=== PATIENT | female | born 1960 | race Caucasian/White ===

== ENCOUNTER 2016-07-04 10:40 | Emergency (ER) | payer MEDICARE, OTHER ==
--- NOTE | 2016-07-04 11:15 | ED ---
Extremity Problem HPI - General Chief complaint: Extremity Problem,Nontraumatic Stated complaint: PAIN IN BACK OF LEFT LEG Time Seen by Provider: 07/04/16 10:47 Source: patient, RN notes reviewed Mode of arrival: wheelchair Limitations: no limitations - History of Present Illness Initial comments: Patient is a 56-year-old female presents to the emergency room for evaluation of left leg pain. Patient states she has been having pain in her left calf that radiates up to posterior thigh. Patient states pain started about a week ago. Patient does state that she fell about 2 months ago onto her buttocks. Patient states that she did have tailbone pain for about a week but that has subsided. Patient denies weakness. Patient denies urinary or fecal incontinence. Patient denies tingling going down extremities Patient denies history of DVTs. Patient denies taking blood thinners. Patient denies shortness of breath or chest pain. Patient does state she has a history of neuropathy. Patient denies history diabetes. Patient denies fevers or chills. Patient denies nausea or vomiting. Patient states the pain improves while leaning forward and walking. - Related Data Home Medications Medication Instructions Recorded Confirmed Aspirin EC [Ecotrin] 325 mg PO DAILY 07/26/13 07/04/16 Citalopram Hydrobromide 40 mg PO HS 07/26/13 07/04/16 [Citalopram HBr] Gabapentin [Neurontin] 600 mg PO TID 07/26/13 07/04/16 Methylphenidate HCl [Ritalin] 20 mg PO BID 07/26/13 07/04/16 risperiDONE 4 mg PO HS 07/26/13 07/04/16 traZODone HCL [traZODone] 150 mg PO HS 07/26/13 07/04/16 Atorvastatin [Lipitor] 40 mg PO HS 07/04/16 07/04/16 Cholecalciferol [Vitamin D3] 1,000 unit PO DAILY 07/04/16 07/04/16 Diclofenac Sodium [Voltaren Gel] 2 gram TOPICAL QID 07/04/16 07/04/16 Lisinopril [Zestril] 10 mg PO DAILY 07/04/16 07/04/16 Multivitamins, Thera [Multivitamin 1 tab PO DAILY@1200 07/04/16 07/04/16 (formulary)] Previous Rx's Medication Instructions Recorded Thiamine [Vitamin B-1] 100 mg PO DAILY@1200 #30 tablet 07/28/13 HYDROcodone/APAP 5-325MG [[place] 1 tab PO Q6HR PRN #12 tab 07/04/16 5-325] Orphenadrine [Norflex] 100 mg PO Q12H PRN #12 tablet.er 07/04/16 methylPREDNISolone Dose Pack 4 mg PO DIRECTED #21 package 07/04/16 [Medrol Dose Pack] Allergies Allergy/AdvReac Type Severity Reaction Status Date / Time iodine Allergy Unknown Verified 07/04/16 12:12 Penicillins Allergy Unknown Verified 07/04/16 12:12 Review of Systems ROS Statement: Those systems with pertinent positive or pertinent negative responses have been documented in the HPI. ROS Other: All systems not noted in ROS Statement are negative. Past Medical History Past Medical History: COPD, CVA/TIA, Hyperlipidemia, Hypertension, Liver Disease , Memory Impairment, Osteoarthritis (OA), Seizure Disorder Additional Past Medical History / Comment(s): cerebral aneurysm, bipolar disorder maintained on multiple psychotropic medications History of Any Multi-Drug Resistant Organisms: None Reported Past Surgical History: Cholecystectomy, Tonsillectomy Additional Past Surgical History / Comment(s): , brain surgery x2 for aneurysm, catherterization to brain Past Anesthesia/Blood Transfusion Reactions: No Reported Reaction Past Psychological History: Anxiety, Bipolar, Schizophrenia Smoking Status: Current every day smoker Past Alcohol Use History: Occasional Additional Past Alcohol Use History / Comment(s): The patient drinks half a pint of hard liquor every day Past Drug Use History: Marijuana - Past Family History Father Family Medical History: COPD, Coronary Artery Disease (CAD), Diabetes Mellitus Mother Family Medical History: Cancer General Exam - General Exam Comments Initial Comments: Sitting in exam room, no acute distress. Limitations: no limitations General appearance: alert, in no apparent distress Head exam: Present: atraumatic, normocephalic, normal inspection Eye exam: Present: normal appearance ENT exam: Present: normal exam Neck exam: Present: normal inspection Respiratory exam: Present: normal lung sounds bilaterally. Absent: respiratory distress Cardiovascular Exam: Present: regular rate, normal rhythm, normal heart sounds Left Lower Leg exam: Present: normal inspection, full ROM, tenderness (Tenderness on palpation of calf area and posterior upper thigh) Ankle exam: Present: normal inspection, full ROM. Absent: tenderness Foot/Toe exam: Present: normal inspection, full ROM. Absent: tenderness Neurovascular tendon exam: Present: no vascular compromise. Absent: pulse deficit (2+ dorsal pedal and posterior tibial pulses), abnormal cap refill ( Capillary refill less than 2 seconds) Back exam: Present: normal inspection, full ROM. Absent: paraspinal tenderness , vertebral tenderness Neurological exam: Present: alert, oriented X3, CN II-XII intact Psychiatric exam: Present: normal affect, normal mood Skin exam: Present: warm, dry, intact, normal color. Absent: rash Course Vital Signs 07/04/16 07/04/16 10:42 13:45 Temperature 96.8 F L 97.6 F Pulse Rate 116 H 95 Respiratory 20 18 Rate Blood Pressure 168/89 163/97 O2 Sat by Pulse 98 100 Oximetry Medical Decision Making - Medical Decision Making Patient is a 56-year-old female since emergency room for evaluation of left leg pain. Venous Doppler of left extremity shows no signs of DVTs. Patient does mention that she fell on her tailbone about 2 weeks ago. Patient's pain could be radicular pain. X-ray of sacrum/coccyx and lumbosacral spine show no acute findings. Patient does state that pain improves while leaning forward. Place patient on prednisone, Norflex and [place]eca for radicular pain. Advised patient to follow-up with her primary care provider on Wednesday for further evaluation. Advised patient to return for worsening symptoms. Patient states she understands everything that was discussed with her. Return parameters discussed. Case discussed with Dr. Salcedo. Disposition Clinical Impression: Left lumbar radiculopathy Disposition: HOME SELF-CARE Condition: Good Instructions: Lumbar Radiculopathy (ED) Additional Instructions: Take medications as directed. Please follow up with primary care provider in 1- 2 days for reevaluation. If any new symptom arises or symptoms worsen, return to ER as soon as possible. Prescriptions: HYDROcodone/APAP 5-325MG [Seneca 5-325] 1 tab PO Q6HR PRN #12 tab PRN Reason: Pain Orphenadrine [Norflex] 100 mg PO Q12H PRN #12 tablet.er PRN Reason: Pain methylPREDNISolone Dose Pack [Medrol Dose Pack] 4 mg PO DIRECTED #21 package Referrals: Kris Ch MD [Primary Care Provider] - 1-2 days Time of Disposition: 13:34
[2016-07-04] MEDS ORDERED: HYDROcodone/APAP 5-325MG 1 EACH TAB PO STA (11:48)
--- NOTE | 2016-07-04 12:25 | US ---
EXAMINATION TYPE: US venous doppler duplex LE LT DATE OF EXAM: 07/04/2016 11:13 AM COMPARISON: NONE CLINICAL HISTORY: Pain. Lateral thigh pain that extends to knee, no swelling, no h/o dvt SIDE PERFORMED: Left TECHNIQUE: The lower extremity deep venous system is examined utilizing real time linear array sonog devi with graded compression, doppler sonography and color-flow sonography. VESSELS IMAGED: External Iliac Vein (EIV) Common Femoral Vein Deep Femoral Vein Greater Saphenous Vein * Femoral Vein Popliteal Vein Small Saphenous Vein * Proximal Calf Veins (* superficial vessels) Left Leg: Appears negative for DVT Grayscale, color doppler, spectral doppler imaging performed of the deep veins of the lower extremiti es. There is normal flow, compressibility, vascular waveforms bilaterally. Targeted ultrasound last several images at level of palpable in the lateral howard just above ankle show no worrisome solid or cystic mass or fluid collection on images saved. IMPRESSION: No ultrasound evidence for acute DVT in the left lower extremity.
--- NOTE | 2016-07-04 13:05 | XR ---
EXAMINATION TYPE: XR sacrum coccyx DATE OF EXAM: 07/04/2016 12:58 PM COMPARISON: NONE HISTORY: Fall injury a week ago with pain. TECHNIQUE: 2 views of sacrum and coccyx are obtained. FINDINGS: No acute displaced fracture in sacrum or coccyx is seen. Sacral alar are maintained bilater ally. Sacroiliac joints are felt preserved. Demineralization is present which is noted low radiograph ic sensitivity. Some vascular calcification in the overlying soft tissue is noted. IMPRESSION: No acute displaced sacral or coccygeal fracture is identified.
--- NOTE | 2016-07-04 13:06 | XR ---
EXAMINATION TYPE: XR lumbosacral spine min 4V DATE OF EXAM: 07/04/2016 12:58 PM CLINICAL HISTORY: Low back pain after fall injury. TECHNIQUE: Frontal, lateral, and oblique images of the lumbar spine are obtained. COMPARISON: None FINDINGS: There are 5 lumbar type vertebral bodies identified with partially sacralized right L5 seg ment. Mineralized. The lumbar spine shows grade 1 anterolisthesis L4 on L5 without evidence of acute fracture or dislocation. Vertebral body heights are within normal limits. There is moderate multileve l disc space narrowing from L3-L4 through L5-S1 levels. Mild to moderate anterior spurring L4-L5 leve l is seen. The oblique images appear within normal limits. Cholecystectomy clips are seen. Overlying oblique skin or subcutaneous teresita are noted. Vascular calcification of overlying abdominal aorta i s noted. IMPRESSION: No acute fracture or dislocation is seen in the lumbar spine.
[2016-07-04 13:46] VITALS: BP 163/97; PULSE 95; RESP 18; TEMP 97.6
== END 2016-07-04 13:45 | disposition home or self-care (01) ==
LOC: EC 10:40
DX: M54.16 Radiculopathy, lumbar region (principal); J44.9 Chronic obstructive pulmonary disease, unspecified; E78.5 Hyperlipidemia, unspecified; I10 Essential (primary) hypertension; M19.90 Unspecified osteoarthritis, unspecified site; G40.909 Epilepsy, unspecified, not intractable, without status epilepticus; F20.9 Schizophrenia, unspecified; F31.9 Bipolar disorder, unspecified; F41.9 Anxiety disorder, unspecified; F17.200 Nicotine dependence, unspecified, uncomplicated; Z86.73 Personal history of transient ischemic attack (TIA), and cerebral infarction without residual deficits; Z79.82 Long term (current) use of aspirin; Z79.899 Other long term (current) drug therapy; Z88.0 Allergy status to penicillin; Z88.8 Allergy status to other drugs, medicaments and biological substances
CPT/HCPCS: 72110; 72220; 99284

== ENCOUNTER → 2016-08-12 | Outpatient (CLI) | payer MEDICARE ==
--- NOTE | 2016-08-15 10:17 | MR ---
MRI left thigh HISTORY: Left thigh pain Multiplanar multisequence imaging through the left thigh No comparisons Abnormal increased signal seen on T2-weighted sequences within the subcutaneous fat of the thigh medi ally which is incompletely evaluated on the current exam, imaging performed more proximally. There is no sizable hip joint effusion. Uterus is normal for age, small nabothian cysts suspected. Bone marro w signal is maintained. No evident trochanteric bursitis. The acetabular labrum shows no definitive t ear on this noncontrast exam. Urinary bladder is normal. There are degenerative disc changes noted at the lower lumbar spine. No free fluid within the pelvis. No evident adenopathy. IMPRESSION: Degenerative disc disease lumbar spine, lumbar MRI may be of benefit. Abnormal signal in the medial thigh incompletely evaluated could be indicative of underlying edema, correlate for possi ble varicosities, thrombophlebitis or cellulitis.
== END | disposition home or self-care (01) ==
LOC: RADMRIMAIN 16:58
PROVIDERS: ATTEND Internal Medicine
DX: M79.652 Pain in left thigh (principal); R93.7 Abnormal findings on diagnostic imaging of other parts of musculoskeletal system

== ENCOUNTER → 2016-08-29 | Outpatient (CLI) | payer MEDICARE ==
--- NOTE | 2016-08-29 13:23 | MR ---
MR lumbar spine wo con Low back pain, left leg pain Multiplanar, multiecho imaging of the lumbar spine was obtained without contrast on a 3 Krystle magnet. REFERENCE:None. FINDINGS: There is a 12 mm nodule just superior to the kidney on the right. This is high in signal o n T1-weighted imaging and may relate to the right adrenal gland. It may represent a myolipoma. Parasp inal soft tissues are otherwise normal. There is a minimal anterolisthesis of L3 on L4. Vertebral body height and alignment otherwise maintai jolie. There is no spondylolysis. Cord signal is maintained. The conus ends normally at the level of the mid body of L1. At T12-L1, no definite abnormality is seen. At L1-2, the intervertebral foramina are well maintained. There is no significant compressive discopa thy. There is minor capsulitis within the facets. At L2-3, there is a bilobed disc displacement. Intervertebral foramina are well maintained. There is minimal hypertrophic change in the facets. At L3-4, there is disc space loss. Intervertebral foramina are well maintained. There is a degenerati ve grade 1 spondylolisthesis of L3 on L4. There is a small pseudodisc. There is marked hypertrophic c hanges within the facets. There is moderate to severe central canal stenosis. At L4-5, there is disc space loss. Intervertebral foramina are reasonably well-maintained. There is a diffuse disc displacement. This hypertrophic changes in the facets. There is mild to moderate centra l canal stenosis. At L5-S1, the intervertebral foramina are reasonably well-maintained. There is a tiny central disc pr otrusion. This is not associated with definite neural compression. There is hypertrophic changes in t he facets.. IMPRESSION: 1. DIFFUSE DEGENERATIVE DISC DISEASE AND FACET ARTHROPATHY. 2. GRADE 1 SPONDYLOLISTHESIS OF L3 ON L4 WHICH IS DEGENERATIVE IN NATURE. 4. VARYING DEGREES OF CENTRAL CANAL COMPROMISE. THIS IS MOST MARKED AT L3-4. 5. 12 MM FAT-CONTAINING NODULE LIKELY RELATING TO THE RIGHT ADRENAL GLAND. THIS COULD BE FURTHER ASSE SSED WITH CT.
== END | disposition home or self-care (01) ==
LOC: RADMRIMAIN 12:09
PROVIDERS: ATTEND Internal Medicine
DX: M43.16 Spondylolisthesis, lumbar region (principal); M51.36 Other intervertebral disc degeneration, lumbar region; M46.96 Unspecified inflammatory spondylopathy, lumbar region
CPT/HCPCS: 72148

== ENCOUNTER 2016-11-03 13:12 | Emergency (ER) | payer MEDICARE ==
[2016-11-03] MEDS ORDERED: SODIUM CHLORIDE 0.9% 1,000 ML IV STA ×2 (13:46→14:26)
[2016-11-03 14:15] LABS: Basophils # (A) 0.1 k/uL (0-0.2); Basophils % (A) 1 %; CH 34.7; CHCM 33.6; Eosinophils # (A) 0.1 k/uL (0-0.7); Eosinophils % (A) 1 %; HCT 43.8 % (34.0-46.0); HDW 2.35; HGB 14.9 gm/dL (11.4-16.0); Luc # (Auto) 0.09; Luc % (Auto) 1; Lymphocytes # (A) 1.1 k/uL (1.0-4.8); Lymphocytes % (A) 12 %; MCH 35.1 pg (25.0-35.0); MCV 103.5 fL (80.0-100.0); Macrocytosis Moderate; Mean Platelet Volume 6.9; Monocytes # (A) 0.4 k/uL (0-1.0); Monocytes % (A) 4 %; Neutrophils # (A) 7.9 k/uL (1.3-7.7); Neutrophils % (A) 82 %; RBC 4.23 m/uL (3.80-5.40); RDW 15.4 % (11.5-15.5); WBC 9.6 k/uL (3.8-10.6); WBC (Perox) 9.66
[2016-11-03 14:17] LABS: INR 1.1 (<1.2); Partial Thromboplastin Time 26.1 sec (22.0-30.0); Prothrombin Time 11.2 sec (9.0-12.0)
[2016-11-03 14:26] LABS: ALT 46 U/L (9-52); AST 55 U/L (14-36); Alkaline Phosphatase 47 U/L (38-126); Anion Gap 16 mmol/L; Blood Urea Nitrogen 8 mg/dL (7-17); Calcium 8.6 mg/dL (8.4-10.2); Carbon Dioxide 21 mmol/L (22-30); Chloride 100 mmol/L (98-107); Glucose 129 mg/dL (74-99); Non-African American GFR(MDRD) >60 (>60 ml/min/1.73 sqM); Sodium 137 mmol/L (137-145); Total Protein 6.8 g/dL (6.3-8.2)
[2016-11-03] MEDS ORDERED: LORazepam 2 MG/ML SYRINGE IV STA ×3 (14:27→15:55)
[2016-11-03 14:33] LABS: Creatine Kinase 411 U/L (30-135)
--- NOTE | 2016-11-03 14:35 | ED ---
GI Bleed HPI - General Chief complaint: GI Bleed Stated complaint: GI Bleed Time Seen by Provider: 11/03/16 14:16 Source: patient, family Mode of arrival: ambulatory Limitations: no limitations - History of Present Illness Initial comments: This 56-year-old white female presents with family with a complaint of some rectal bleeding. She apparently had one episode this morning of bright red blood per rectum which was purportedly a moderate amount. She also has been drinking heavily. She drinks approximately one and a half pints per day. She has been drinking today and appears intoxicated. She apparently fell 2 days ago and hit her left periorbital region. She denies any other injuries. She denies passing out but this apparently was an unwitnessed event. She denies any previous history of GI bleeding. She denies any history of peptic ulcer disease. The family relates that she is having a difficult time ambulating but thinks this is due to her alcohol intoxication. No other injuries, complaints, or modifying factors. She apparently has not been taking her medicine due to drinking alcohol heavily. She relates that she has been drinking a lot of red Clif-Aid recently. - Related Data Home Medications Medication Instructions Recorded Confirmed Aspirin EC [Ecotrin] 325 mg PO DAILY 07/26/13 11/03/16 Citalopram Hydrobromide 40 mg PO HS 07/26/13 11/03/16 [Citalopram HBr] Gabapentin [Neurontin] 600 mg PO TID 07/26/13 11/03/16 Methylphenidate HCl [Ritalin] 20 mg PO BID 07/26/13 11/03/16 risperiDONE 4 mg PO HS 07/26/13 11/03/16 traZODone HCL [traZODone] 150 mg PO HS 07/26/13 11/03/16 Atorvastatin [Lipitor] 40 mg PO HS 07/04/16 11/03/16 Cholecalciferol [Vitamin D3] 1,000 unit PO DAILY 07/04/16 11/03/16 Lisinopril [Zestril] 10 mg PO DAILY 07/04/16 11/03/16 Multivitamins, Thera [Multivitamin 1 tab PO DAILY 07/04/16 11/03/16 (formulary)] Albuterol Inhaler [Ventolin Hfa 1 - 2 puff INHALATION RT-Q6H PRN 11/03/16 Inhaler] Baclofen [Lioresal] 10 mg PO TID PRN 11/03/16 11/03/16 Fluticasone/Salmeterol [Advair 1 inhalation PO RT-BID 11/03/16 11/03/16 500-50 Diskus] HYDROcodone/APAP 10-325MG [[place] 1 tab PO Q6H PRN 11/03/16 11/03/16 10-325] Meloxicam [Mobic] 15 mg PO DAILY 11/03/16 11/03/16 Thiamine [Vitamin B-1] 100 mg PO DAILY 11/03/16 11/03/16 Allergies Allergy/AdvReac Type Severity Reaction Status Date / Time iodine Allergy Unknown Verified 11/03/16 14:41 Penicillins Allergy Unknown Verified 11/03/16 14:41 Review of Systems ROS Statement: Those systems with pertinent positive or pertinent negative responses have been documented in the HPI. ROS Other: All systems not noted in ROS Statement are negative. Past Medical History Past Medical History: COPD, CVA/TIA, Hyperlipidemia, Hypertension, Liver Disease , Memory Impairment, Osteoarthritis (OA), Seizure Disorder Additional Past Medical History / Comment(s): cerebral aneurysm, bipolar disorder maintained on multiple psychotropic medications History of Any Multi-Drug Resistant Organisms: None Reported Past Surgical History: Cholecystectomy, Tonsillectomy Additional Past Surgical History / Comment(s): , brain surgery x2 for aneurysm, catherterization to brain Past Anesthesia/Blood Transfusion Reactions: No Reported Reaction Past Psychological History: Anxiety, Bipolar, Schizophrenia Smoking Status: Current every day smoker Past Alcohol Use History: Daily Past Drug Use History: None Reported - Past Family History Father Family Medical History: COPD, Coronary Artery Disease (CAD), Diabetes Mellitus Mother Family Medical History: Cancer General Exam - General Exam Comments Initial Comments: GENERAL: The patient is well nourished and well hydrated. VITAL SIGNS: Heart rate, blood pressure, respiratory rate reviewed as recorded in nurse's notes. EYES: Pupils are round and reactive. Extraocular movements are intact. There is mild conjunctival erythema bilaterally. ENT: There is some left periorbital ecchymosis. There is no significant swelling noted. There is no tenderness upon palpation. Airway is patent. Throat is clear. NECK: Nontender. No swelling or evidence of injury. No subcutaneous emphysema. Trachea is midline. No thyroid mass. HEART: Regular rate and rhythm. Good peripheral pulses. LUNGS/CHEST: Breath sounds clear and equal bilaterally. No rales, rhonchi, or wheezes. No ecchymosis, subcutaneous emphysema, or tenderness. ABDOMEN: Abdomen soft without tenderness. No palpable masses or organomegaly. No peritoneal signs. No abdominal wall swelling or ecchymosis. EXTREMITIES: No extremity tenderness. Normal muscle tone and function. No thoracolumbar tenderness. NEUROLOGIC: Sensation is grossly intact. Cranial nerve exam reveals face is symmetrical, tongue is midline, speech is clear. Patient appears intoxicated with a strong odor of alcohol noted. SKIN: There is ecchymosis noted to the left periorbital region. No induration or masses noted. PSYCHIATRIC: Alert and oriented. Patient appears intoxicated and quite agitated. Rectal exam: There is some mild nonbleeding hemorrhoids noted. Upon digital rectal examination a reddish substance is noted on the end of the glove. This does not appear to be blood and Hemoccult is negative. Limitations: no limitations Course Vital Signs 11/03/16 11/03/16 11/03/16 13:19 14:39 16:33 Temperature 98.4 F 98.1 F Pulse Rate 116 H 94 85 Respiratory 20 18 16 Rate Blood Pressure 145/94 130/71 O2 Sat by Pulse 95 95 Oximetry 11/03/16 20:09 Temperature 98.4 F Pulse Rate 104 H Respiratory 18 Rate Blood Pressure 173/89 O2 Sat by Pulse 95 Oximetry Medical Decision Making - Medical Decision Making The patient was seen and examined. All diagnostics were reviewed. An IV is started and she is hydrated. She receives Ativan 1 mg IV due to the agitation. She still remains agitated and later receives another milligram of Ativan. She pulled out her IV and was stripping down her close in the ER. She had a computed tomography scan of the brain which shows previous aneurysm clipping but no acute process. Computed tomography scan of the orbits does show some right maxillary sinusitis. The patient's alcohol level was elevated. Her potassium is slightly low. The Hemoccult is negative. It is felt as though the suspected blood in the stool is likely due to her drinking red Clif-Aid. Her hemoglobin is quite stable at 14.9. At this time, it is felt that her main problem is that of alcohol abuse and intoxication. She will be watched in the ER unil sober. She remains quite combative and is trying to get off her car continuously and walk away. She is quite agitated as well. She receives some Geodon intramuscularly but this does not seem to help. 4 point restraints were necessary and utilized. She was evaluated approximately one hour after they restraints are placed and she is still quite combative. Repeat breathalyzer test was eventually done and this shows a value of 0.059. She is feeling much better at this time and does not have any complaints. The restraints were removed and she is able to ambulate without any difficulty. She is alert and oriented and much more pleasant on recheck. There are no signs of any degree of alcohol withdrawal noted. It is felt as though she is stable for discharge. She is counseled extensively regarding alcohol abuse and need for abstinence. The case is discussed with her son prior to discharge and he states that he will try to get her set up with alcohol rehabilitation. She is given information in this regard as well. - Lab Data Result diagrams: 11/03/16 13:35 11/03/16 13:35 Lab Results 11/03/16 11/03/16 11/03/16 Range/Units 13:35 13:35 13:35 WBC 9.6 (3.8-10.6) k/uL RBC 4.23 (3.80-5.40) m/uL Hgb 14.9 (11.4-16.0) gm/dL Hct 43.8 (34.0-46.0) % MCV 103.5 H (80.0-100.0) fL MCH 35.1 H (25.0-35.0) pg MCHC 34.0 (31.0-37.0) g/dL RDW 15.4 (11.5-15.5) % Plt Count 149 L (150-450) k/uL Neutrophils % 82 % Lymphocytes % 12 % Monocytes % 4 % Eosinophils % 1 % Basophils % 1 % Neutrophils # 7.9 H (1.3-7.7) k/uL Lymphocytes # 1.1 (1.0-4.8) k/uL Monocytes # 0.4 (0-1.0) k/uL Eosinophils # 0.1 (0-0.7) k/uL Basophils # 0.1 (0-0.2) k/uL Macrocytosis Moderate PT (9.0-12.0) sec INR (<1.2) APTT (22.0-30.0) sec Sodium 137 (137-145) mmol/L Potassium 3.0 L* (3.5-5.1) mmol/L Chloride 100 (98-107) mmol/L Carbon Dioxide 21 L (22-30) mmol/L Anion Gap 16 mmol/L BUN 8 (7-17) mg/dL Creatinine 0.92 (0.52-1.04) mg/dL Est GFR (MDRD) Af Amer >60 (>60 ml/min/1.73 sqM) Est GFR (MDRD) Non-Af >60 (>60 ml/min/1.73 sqM) Glucose 129 H (74-99) mg/dL Calcium 8.6 (8.4-10.2) mg/dL Total Bilirubin 1.0 (0.2-1.3) mg/dL AST 55 H (14-36) U/L ALT 46 (9-52) U/L Alkaline Phosphatase 47 (38-126) U/L Total Creatine Kinase 411 H (30-135) U/L CK-MB (CK-2) 5.6 H* (0.0-2.4) ng/mL CK-MB (CK-2) Rel Index 1.4 Troponin I <0.012 (0.000-0.034) ng/mL Total Protein 6.8 (6.3-8.2) g/dL Albumin 3.6 (3.5-5.0) g/dL Stool Occult Blood (Negative) Serum Alcohol 262 mg/dL Blood Type Blood Type Recheck Antibody Screen Spec Expiration Date 11/03/16 11/03/16 11/03/16 Range/Units 13:35 13:35 15:00 WBC (3.8-10.6) k/uL RBC (3.80-5.40) m/uL Hgb (11.4-16.0) gm/dL Hct (34.0-46.0) % MCV (80.0-100.0) fL MCH (25.0-35.0) pg MCHC (31.0-37.0) g/dL RDW (11.5-15.5) % Plt Count (150-450) k/uL Neutrophils % % Lymphocytes % % Monocytes % % Eosinophils % % Basophils % % Neutrophils # (1.3-7.7) k/uL Lymphocytes # (1.0-4.8) k/uL Monocytes # (0-1.0) k/uL Eosinophils # (0-0.7) k/uL Basophils # (0-0.2) k/uL Macrocytosis PT 11.2 (9.0-12.0) sec INR 1.1 (<1.2) APTT 26.1 (22.0-30.0) sec Sodium (137-145) mmol/L Potassium (3.5-5.1) mmol/L Chloride (98-107) mmol/L Carbon Dioxide (22-30) mmol/L Anion Gap mmol/L BUN (7-17) mg/dL Creatinine (0.52-1.04) mg/dL Est GFR (MDRD) Af Amer (>60 ml/min/1.73 sqM) Est GFR (MDRD) Non-Af (>60 ml/min/1.73 sqM) Glucose (74-99) mg/dL Calcium (8.4-10.2) mg/dL Total Bilirubin (0.2-1.3) mg/dL AST (14-36) U/L ALT (9-52) U/L Alkaline Phosphatase (38-126) U/L Total Creatine Kinase (30-135) U/L CK-MB (CK-2) (0.0-2.4) ng/mL CK-MB (CK-2) Rel Index Troponin I (0.000-0.034) ng/mL Total Protein (6.3-8.2) g/dL Albumin (3.5-5.0) g/dL Stool Occult Blood Negative (Negative) Serum Alcohol mg/dL Blood Type AB Negative Blood Type Recheck AB Neg Antibody Screen NEGATIVE Spec Expiration Date 11/06/20162334 Disposition Clinical Impression: Altered mental status, Alcohol intoxication, Sinus tachycardia, Periorbital ecchymosis of left eye, Agitation, Hypokalemia, Alcohol abuse, Head injury Disposition: HOME SELF-CARE Condition: Good Instructions: Abuse of Alcohol (ED), Alcohol Intoxication (ED), Head Injury (ED ) Referrals: Ellen Cano MD [Primary Care Provider] - 1-2 days Time of Disposition: 21:24
[2016-11-03 14:37] LABS: Alcohol 262 mg/dL
[2016-11-03 14:46] LABS: Troponin I <0.012 ng/mL (0.000-0.034)
[2016-11-03 14:56] LABS: Creatine Kinase MB 5.6 ng/mL (0.0-2.4)
[2016-11-03] MEDS ORDERED: NICOTINE 21MG/24HR PATCH TRANSDERM STA (15:04)
--- NOTE | 2016-11-03 15:42 | CT ---
EXAMINATION TYPE: CT brain wo con DATE OF EXAM: 11/03/2016 COMPARISON: Previous study dated 01/18/2015. HISTORY: Patient poor historian. Patient has right side periorbital contusion. CT DLP: 863.4 mGycm Automated exposure control for dose reduction was used. FINDINGS: There has been a previous aneurysm clipping near the [place]. This is causing significant st reak artifact. There are mild atrophic changes. There is some periventricular white matter lucency consistent with c hronic ischemic change. There is no focal lesion, mass effect or midline shift. I do not see evidence of intracranial blood. The orbits appear normal. There is mucoperiosteal thickening involving the ethmoid air cells. There is fluid in the left mastoi d air cells. There is mucosal thickening involving the right maxillary sinus. The zygomatic arches are intact. The pterygoid plates are intact. The coates of the orbits are intact. IMPRESSION: 1. EVIDENCE OF PREVIOUS ANEURYSM CLIPPING. 2. NO ACUTE INTRACRANIAL ABNORMALITY. 3. MILD ATROPHIC CHANGE. 4. RIGHT MAXILLARY AND ETHMOIDAL SINUS MUCOSAL DISEASE. 5. LEFT-SIDED MASTOIDITIS.
[2016-11-03] MEDS ORDERED: POTASSIUM CHLORIDE ER 20 MEQ TAB.ER PO STA (15:53)
--- NOTE | 2016-11-03 15:55 | CT ---
EXAMINATION TYPE: CT orbits wo con DATE OF EXAM: 11/03/2016 COMPARISON: NONE HISTORY: Patient poor historian. Patient has right side periorbital contusion. CT DLP: 307.3 mGycm Automated exposure control for dose reduction was used. FINDINGS: Chronic right maxillary mucoperiosteal thickening is seen. Scant left maxillary mucosal thickening is noted as well as mild ethmoid, sphenoid and frontal mucosal thickening. The ostiomeatal complexes ar e obstructed bilaterally. No evidence of nasal turbinate hypertrophy. Frontal recesses are patent. No contra bullosa or Zainab cells are seen. Small rightward nasal spur is noted. Maxillary spine and na gerda septum are intact. Atherosclerosis of the intracranial vasculature is seen as well as aneurysmal clip crating extensive spray artifact. Visualized portions of the brain were discussed in the CT brain dictation the same da y. Orbits and extra ocular muscles are symmetric. IMPRESSION: ACUTE ON CHRONIC PANSINUSITIS WITH CHRONIC RIGHT MAXILLARY OSSEOUS CHANGES. BILATERAL OSTIOMEATAL OCC LUSION BY MUCOSAL THICKENING.
[2016-11-03] MEDS ORDERED: ZIPRASIDONE 20 MG VIAL IM STA ×2 (17:38→17:39)
[2016-11-03 20:38] VITALS: RESP 18
[2016-11-03 21:28] VITALS: BP 162/72; PULSE 80; TEMP 98.2
== END 2016-11-03 21:30 | disposition home or self-care (01) ==
LOC: EC 13:12
DX: S05.10XA Contusion of eyeball and orbital tissues, unspecified eye, initial encounter (principal); R41.82 Altered mental status, unspecified; F10.120 Alcohol abuse with intoxication, uncomplicated; R00.0 Tachycardia, unspecified; E87.6 Hypokalemia; I67.1 Cerebral aneurysm, nonruptured; J44.9 Chronic obstructive pulmonary disease, unspecified; E78.5 Hyperlipidemia, unspecified; I10 Essential (primary) hypertension; M19.90 Unspecified osteoarthritis, unspecified site; F41.9 Anxiety disorder, unspecified; F31.9 Bipolar disorder, unspecified; F20.9 Schizophrenia, unspecified; F17.200 Nicotine dependence, unspecified, uncomplicated; Z79.1 Long term (current) use of non-steroidal anti-inflammatories (NSAID); Z79.52 Long term (current) use of systemic steroids; Z79.899 Other long term (current) drug therapy; Z79.82 Long term (current) use of aspirin; Z86.73 Personal history of transient ischemic attack (TIA), and cerebral infarction without residual deficits; Z98.890 Other specified postprocedural states; Z78.1 Physical restraint status
CPT/HCPCS: 96361 ×6; 96372 ×2; 96360 ×3; 96374 ×3; 96376 ×2; 99284 ×2; 36415; 86900; 86901; 80053; 82550; 82553; 84484; 85025; 85610; 85730; 86850; 82272; 80320; 70450; 70480; S4990; J2060; J3486

== ENCOUNTER → 2016-12-14 | Outpatient (CLI) | payer MEDICARE ==
--- NOTE | 2016-12-14 14:15 | XR ---
EXAMINATION TYPE: 5 views lumbar spine. 2 views left hip. DATE OF EXAM: 12/14/2016 COMPARISON: NONE HISTORY: 56-year-old female multiple recent falls, left hip and low back pain. FINDINGS: Lumbar spine: There is a transitional lumbosacral segment with a right L5 hemisacralization. Hypertrophic facet art hropathy throughout especially in the mid to lower lumbar spine. There is grade 1 anterolisthesis at L4-L5. The pedicles appear short suggesting possible underlying congenital spinal canal stenosis. Adore tebral body heights are preserved. Mild to moderate degenerative disc disease in the lower lumbar spi ne. No pars interarticularis defects seen. Left hip: Mild marginal spurring at the left hip. Some degenerative labral ossification or congenital os acetab tobi is noted along the superior acetabular margin. No acute fracture, subluxation, or dislocation. IMPRESSION: 1. Lumbar spine: Hypertrophic facet arthropathy throughout with grade 1 anterolisthesis at L4-L5. Mil d to moderate degenerative disc disease lower lumbar spine. Possible underlying congenital spinal can al narrowing lower lumbar spine. No vertebral compression collapse. 2. Left hip: Very mild degenerative changes. No acute osseous abnormality seen.
== END | disposition home or self-care (01) ==
LOC: RADXRMAIN 12:24
PROVIDERS: ATTEND Internal Medicine
DX: M43.16 Spondylolisthesis, lumbar region (principal); M51.36 Other intervertebral disc degeneration, lumbar region; M25.552 Pain in left hip; M46.86 Other specified inflammatory spondylopathies, lumbar region
CPT/HCPCS: 72110; 73502

== ENCOUNTER → 2017-01-26 | Outpatient (CLI) | payer MEDICARE ==
--- NOTE | 2017-01-26 09:11 | US ---
EXAMINATION TYPE: US liver DATE OF EXAM: 01/26/2017 COMPARISON: None CLINICAL HISTORY: 57-year-old female R94.5 ABN LIVER FUNCTIONS. On multiple medications for HTN, bipo lar, ADHD; smoker TECHNIQUE: Multiple sonographic images of the right upper quadrant are obtained. FINDINGS: Liver Length: 15.4 cm Gallbladder: surgically removed CBD: 0.9 cm Right Kidney: 10.5 x 5.2 x 4.6 cm Pancreas: Suboptimal visualization of the pancreatic head and tail due to shadowing from bowel gas. Visualized body shows no gross abnormality. Liver: Mildly hyperechoic. No focal lesion seen. Gallbladder: surgically absent CBD: Dilated but within acceptable limits postcholecystectomy. Right Kidney: No hydronephrosis IMPRESSION: 1. The liver is mildly hyperechoic suggesting fatty infiltration. Correlate with LFTs, lipid profile, and patient risk factors. 2. Bile duct dilated at 9 mm. This is within an acceptable range status post cholecystectomy.
== END | disposition home or self-care (01) ==
LOC: RADUSWWP 08:14
PROVIDERS: ATTEND Internal Medicine
DX: R93.2 Abnormal findings on diagnostic imaging of liver and biliary tract (principal); Z90.49 Acquired absence of other specified parts of digestive tract
CPT/HCPCS: 76705

== ENCOUNTER → 2017-09-01 | Outpatient (CLI) | payer MEDICARE, OTHER ==
--- NOTE | 2017-09-01 12:16 | MR ---
Sary Weller EXAMINATION TYPE: MRI brain without contrast DATE OF EXAM: 09/01/2017 COMPARISON: CT 11/03/2016 and MRA 01/18/2015 HISTORY: 57-year-old female follow-up nonruptured cerebral aneurysm TECHNIQUE: Multiplanar, multisequence images of the brain and brainstem were acquired without IV con trast. Diffusion weighted imaging is performed. FINDINGS: There is focal susceptibility artifact in the region of the A1 segment right anterior cerebral artery from known coil mass. No evidence for acute infarction, hemorrhage, mass, mass effect, midline shift, herniation, effacemen t of basal cisterns, or extra-axial fluid collection. There is moderate generalized supratentorial volume loss is secondary mild prominence to the ventricu lar system. The left vertebral artery is dominant. There is visualization of the right internal carotid artery fl ow void on the present exam. The patient's right A1 segment coil mass measures 10 mm craniocaudal by 6 mm wide by 7 mm AP. The remaining intracranial flow voids are intact. T2/FLAIR weighted sequences show mild scattered subcortical white matter changes, nonspecific, most l ikely relating to trace border of chronic small vessel ischemic disease. Midline structures demonstrate normal morphology. The craniocervical junction is normal. Opacification of the left mastoid air cells and small amount of fluid in the right mastoid air cells. Severe mucosal thickening right maxillary sinus with air-fluid level, moderate within the ethmoid ai r cells, and mild within the left maxillary sinus and right lateral frontal sinuses. Globes are intac t of the patient's gaze is divergent suggesting underlying strabismus. IMPRESSION: 1. Note that this study was not performed as an angiographic exam. 2. A1 segment right RASHAWN coil mass redemonstrated. There is less artifact on conventional brain MRI as compared to the patient's previous MR angiograms and the coil mass/artifact measures 10 x 6 x 7 mm. 3. As compared to the prior MRA, an intact flow void of the right ICA is now seen. 4. Mild to moderate atrophy. No acute intracranial abnormality seen. 5. Pansinus disease, moderate to severe in the right maxillary sinus and ethmoid air cells. Air-fluid level in the right maxillary sinus suggests superimposed acute sinusitis. 6. Extensive trapped fluid in the left mastoid air cells. Correlate for possible mastoiditis.
== END | disposition home or self-care (01) ==
LOC: RADMRIMAIN 10:40
PROVIDERS: ATTEND Specialist
DX: I67.89 Other cerebrovascular disease (principal)
CPT/HCPCS: 70551

== ENCOUNTER 2018-06-03 21:32 | Inpatient (IN) | payer MEDICARE, OTHER ==
[~2018-06-03 21:32] MED LIST: ETOMIDATE 2 MG/ML 10 ML VIAL ONE; SUCCINYLCHOLINE CHLORIDE VIAL 200 MG/10 ML VIAL IV ONE
[2018-06-03] MEDS ORDERED: methylPREDNISolone SOD SUCCI 125 MG/2 ML VIAL IV STA (21:39)
[2018-06-03] MEDS ORDERED: IPRATROPIUM-ALBUTEROL 3 ML NEB INHALATION STA (21:39)
[2018-06-03] MEDS ORDERED: ALBUTEROL NEBULIZED 2.5 MG/3 ML INHALATION STA (21:41)
[2018-06-03] MEDS ORDERED: MIDAZOLAM 1 MG/ML 5 ML VIAL IV STA (21:43)
[2018-06-03] MEDS ORDERED: ROCURONIUM BROMIDE 10 MG/ML 10 ML VIAL IV STA (21:43)
[2018-06-03 21:49] LABS: Glucose,Whole Blood 109 mg/dL (75-99)
[2018-06-03 21:50] LABS: ABG HCO3 15 mmol/L (21-25); ABG Oxygen Saturation 92.5 % (94-97); ABG PCO2 47 mmHg (35-45); ABG PO2 77 mmHg (83-108); ABG TCO2 16 mmol/L (19-24)
[2018-06-03 21:54] LABS: ABG PH 7.11 (7.35-7.45)
[2018-06-03 22:02] LABS: HCT 35.6 % (34.0-46.0); HGB 10.1 gm/dL (11.4-16.0); Hypochromasia Marked; MCHC 28.2 g/dL (31.0-37.0); MCV 106.2 fL (80.0-100.0); Macrocytosis Moderate; Mean Platelet Volume 7.6; Platelet Count 297 k/uL (150-450); RBC 3.36 m/uL (3.80-5.40); RDW 15.7 % (11.5-15.5)
[2018-06-03 22:03] LABS: Calcium 7.8 mg/dL (8.4-10.2); Magnesium 1.5 mg/dL (1.6-2.3); Total Bilirubin 0.9 mg/dL (0.2-1.3)
[2018-06-03 22:04] LABS: INR 2.5 (<1.2); Partial Thromboplastin Time 37.6 sec (22.0-30.0); Prothrombin Time 24.2 sec (9.0-12.0)
[2018-06-03] MEDS: NOREPINEPHRINE 4 MG in SODIUM CHLORIDE 0.9% 250 ML IV ONE (22:08)
[2018-06-03 22:17] LABS: WBC 1.4 k/uL (3.8-10.6)
[2018-06-03] MEDS ORDERED: AZITHROMYCIN 500 MG in SODIUM CHLORIDE 0.9% 250 ML IVPB STA (22:17)
[2018-06-03] MEDS ORDERED: SODIUM CHLORIDE 0.9% 1,000 ML IV ONE ×2 (22:18→23:27)
[2018-06-03 22:24] LABS: Potassium 3.8 mmol/L (3.5-5.1)
[2018-06-03] MEDS ORDERED: MIDAZOLAM HCL 50 MG in SODIUM CHLORIDE 0.9% 40 ML IV SCH (22:30)
[2018-06-03] MEDS ORDERED: MAGNESIUM SULFATE-D5W PMX 1 GM in DEXTROSE/WATER 1 100ML.BAG IVPB ONE (22:37)
--- NOTE | 2018-06-03 22:42 | ED ---
General Adult HPI - General Chief complaint: Shortness of Breath Stated complaint: SUDHAKAR Time Seen by Provider: 06/03/18 21:39 Source: patient, family, EMS, RN notes reviewed, old records reviewed Mode of arrival: EMS Limitations: no limitations - History of Present Illness Initial comments: 58-year-old female presenting as transfer from outside hospital with pneumonia, septic shock, lactic acidosis. Patient was placed on BiPAP prior to transfer, she was given IV antibiotics and started on norepinephrine through peripheral line. Upon arrival patient is in moderate to severe respiratory distress, she appears lethargic, cyanotic and pale. History limited secondary to patient's clinical presentation. - Related Data Home Medications Medication Instructions Recorded Confirmed Aspirin EC [Ecotrin] 325 mg PO DAILY 07/26/13 11/03/16 Citalopram Hydrobromide 40 mg PO HS 07/26/13 11/03/16 [Citalopram HBr] Gabapentin [Neurontin] 600 mg PO TID 07/26/13 11/03/16 Methylphenidate HCl [Ritalin] 20 mg PO BID 07/26/13 11/03/16 risperiDONE 4 mg PO HS 07/26/13 11/03/16 traZODone HCL [traZODone] 150 mg PO HS 07/26/13 11/03/16 Atorvastatin [Lipitor] 40 mg PO HS 07/04/16 11/03/16 Cholecalciferol [Vitamin D3] 1,000 unit PO DAILY 07/04/16 11/03/16 Lisinopril [Zestril] 10 mg PO DAILY 07/04/16 11/03/16 Multivitamins, Thera [Multivitamin 1 tab PO DAILY 07/04/16 11/03/16 (formulary)] Albuterol Inhaler [Ventolin Hfa 1 - 2 puff INHALATION RT-Q6H PRN 11/03/16 11/03/16 Inhaler] Baclofen [Lioresal] 10 mg PO TID PRN 11/03/16 11/03/16 Fluticasone/Salmeterol [Advair 1 inhalation PO RT-BID 11/03/16 11/03/16 500-50 Diskus] HYDROcodone/APAP 10-325MG [[place] 1 tab PO Q6H PRN 11/03/16 11/03/16 10-325] Meloxicam [Mobic] 15 mg PO DAILY 11/03/16 11/03/16 Thiamine [Vitamin B-1] 100 mg PO DAILY 11/03/16 11/03/16 Allergies Allergy/AdvReac Type Severity Reaction Status Date / Time iodine Allergy Unknown Verified 06/03/18 21:51 Penicillins Allergy Unknown Verified 06/03/18 21:51 Review of Systems ROS Statement: Those systems with pertinent positive or pertinent negative responses have been documented in the HPI. ROS Other: All systems not noted in ROS Statement are negative. Past Medical History Past Medical History: COPD, CVA/TIA, Hyperlipidemia, Hypertension, Liver Disease, Memory Impairment, Osteoarthritis (OA), Seizure Disorder Additional Past Medical History / Comment(s): cerebral aneurysm, bipolar disorder maintained on multiple psychotropic medications History of Any Multi-Drug Resistant Organisms: None Reported Past Surgical History: Cholecystectomy, Tonsillectomy Additional Past Surgical History / Comment(s): , brain surgery x2 for aneurysm, catherterization to brain Past Anesthesia/Blood Transfusion Reactions: No Reported Reaction Past Psychological History: Anxiety, Bipolar, Schizophrenia Smoking Status: Current every day smoker Past Alcohol Use History: Daily Past Drug Use History: None Reported - Past Family History Father Family Medical History: COPD, Coronary Artery Disease (CAD), Diabetes Mellitus Mother Family Medical History: Cancer General Exam Limitations: no limitations Course Vital Signs 06/03/18 06/03/18 06/03/18 21:34 21:45 22:00 Temperature 97.3 F L Pulse Rate 116 H 110 H 111 H Respiratory 28 H 28 H 29 H Rate Blood Pressure 77/49 77/49 71/51 O2 Sat by Pulse 99 94 L 97 Oximetry 06/03/18 06/03/18 06/03/18 22:06 22:12 22:15 Temperature Pulse Rate 113 H 113 H 100 Respiratory 29 H 28 H 18 Rate Blood Pressure 76/50 O2 Sat by Pulse 85 L Oximetry 06/03/18 06/03/18 06/03/18 22:30 22:45 23:02 Temperature Pulse Rate 113 H 117 H 117 H Respiratory 18 18 18 Rate Blood Pressure 72/44 108/72 114/78 O2 Sat by Pulse 85 L 90 L 90 L Oximetry 06/03/18 23:15 Temperature Pulse Rate 112 H Respiratory 18 Rate Blood Pressure 101/73 O2 Sat by Pulse 89 L Oximetry - Reevaluation(s) Reevaluation #1: 06/03/18 22:05 Patient appears very ill on initial evaluation. My initial plan was to intubate this patient however there was some concern that the patient does not want to be intubated. I did ask her on multiple occasions if she would allow us to support her breathing and ultimately she does agree. Did discuss this with both her son and , and they agree that we should do whatever is necessary. IV is established, patient is intubated. EKG Findings - EKG Comments: EKG Findings:: EKG: Sinus tachycardia, low voltage QRS ventricular rate 114, AR interval 126, QRS duration 82, QTC [address] segment elevation Procedures - Central Line Placement Right IJ Consent Obtained: verbal consent, emergent situation Patient Placed on Monitor/Pulse Ox: Yes MD Prep: mask, gown, gloves Central Line Prep: Chlorhexidine scrub, sterile drapes applied Local Anesthesia Used: Lidocaine 1% Amount of Anesthesia Used (mls): 3 Ultrasound Used for Placement: Yes Central Line Lumen Inserted: triple Bloods Obtained for Lab: Yes Central Line Position: good blood return, all ports aspirated, flushed, capped, sutured in place with nylon Dressing Applied: Tegaderm Post Procedure X-Ray: tip of catheter in good position Patient Tolerated Procedure: well Complications: none - Intubation Sedative: Versed Mg Given: 5 Paralytic: Rocuronium Mg Given: 50 Laryngoscope: Karlo Size: 3 ET Tube Size: 7.5 ET Tube Uncuffed: No Tube Secured Depth (cm): 22 Tube Secured Location: lips Tube Placement Confirmation: visualized tube passing through cords, equal breath sounds bilaterally, no breath sounds over epigastrium, confirmation by capnometry Patient Tolerated Procedure: well Intubation Complications: none - Sepsis Sepsis Focused Exam #1 Time Sepsis Criteria Met: 21:35 Sepsis Focused Exam Date: 06/03/18 Sepsis Focused Exam Time: 23:37 Sepsis Focused Exam Complete: Yes Vital Signs & RN Notes Reviewed: Yes Capillary Refill: > 2 Seconds: Fingers, Toes Peripheral Pulses: Weak: Radial (R), Radial (L) Skin Color: Pallor Respiratory Exam: respiratory distress, wheezes, rhonchi Cardiovascular Exam: normal rhythm, tachycardia Medical Decision Making - Medical Decision Making 58-year-old female presenting in severe respiratory distress, transfer from outside hospital. Upon arrival. Patient is hypotensive, tachycardic, pale cyanotic with poor oxygenation on BiPAP. I did intubate this patient, establish central venous access. Continue pressors. Initiated antibiotics including cefepime, continue vancomycin, add azithromycin. Laboratory studies reviewed from transferring facility, patient lactic acid of 11.4, hemoglobin 9.3, she was leukopenic. She had transaminitis with an AST 1426, ALT 240. All laboratory studies. Patient is given normal saline bolus, 2 additional liters. She is continued on norepinephrine. She has leukopenia and neutropenia with an absolute neutrophil count of 800. Hemoglobin stable. PH on arterial gas 7.1. CO2 14. Lactic acid is down trending at 8.2 from previous of 11.4. She hasn't albumin of 2.0. Electrolytes abnormalities, elevated INR, hypoalbuminemia, may all be related to liver failure in the setting of significantly elevated AST and ALT versus shock liver. Diagnosis: Respiratory failure, bilateral pneumonia with hypoxia and respiratory failure requiring intubation. Septic shock secondary to pneumonia. Transaminitis, liver failure. Case discussed with both the admitting physician, and the pulmonary neon light installer. - Lab Data Result diagrams: 06/03/18 21:44 06/03/18 21:44 Lab Results 06/03/18 06/03/18 06/03/18 Range/Units 21:44 21:44 21:44 WBC 1.4 L* (3.8-10.6) k/uL RBC 3.36 L (3.80-5.40) m/uL Hgb 10.1 L (11.4-16.0) gm/dL Hct 35.6 (34.0-46.0) % MCV 106.2 H (80.0-100.0) fL MCH 30.0 (25.0-35.0) pg MCHC 28.2 L (31.0-37.0) g/dL RDW 15.7 H (11.5-15.5) % Plt Count 297 (150-450) k/uL Neutrophils % (Manual) 29 % Band Neutrophils % 34 % Lymphocytes % (Manual) 32 % Monocytes % (Manual) 2 % Myelocytes % 4 % Neutrophils # (Manual) 0.80 L (1.3-7.7) k/uL Lymphocytes # (Manual) 0.45 L (1.0-4.8) k/uL Monocytes # (Manual) 0.03 (0-1.0) k/uL Myelocytes # (Manual) 0.06 H (0) k/uL Nucleated RBCs 1 H (0-0) /100 WBC Manual Slide Review Performed Hypochromasia Marked Macrocytosis Moderate PT 24.2 H (9.0-12.0) sec INR 2.5 H (<1.2) APTT 37.6 H (22.0-30.0) sec Sample Site ABG pH (7.35-7.45) ABG pCO2 (35-45) mmHg ABG pO2 (83-108) mmHg ABG HCO3 (21-25) mmol/L ABG Total CO2 (19-24) mmol/L ABG O2 Saturation (94-97) % ABG Base Excess mmol/L Dionisio Test FiO2 % Sodium 136 L (137-145) mmol/L Potassium 3.8 (3.5-5.1) mmol/L Chloride 109 H (98-107) mmol/L Carbon Dioxide 14 L (22-30) mmol/L Anion Gap 13 mmol/L BUN 8 (7-17) mg/dL Creatinine 1.18 H (0.52-1.04) mg/dL Est GFR (CKD-EPI)AfAm 59 (>60 ml/min/1.73 sqM) Est GFR (CKD-EPI)NonAf 52 (>60 ml/min/1.73 sqM) Glucose 92 (74-99) mg/dL POC Glucose (mg/dL) (75-99) mg/dL POC Glu Document Scanner ID Plasma Lactic Acid Rayo (0.7-2.0) mmol/L Calcium 7.8 L (8.4-10.2) mg/dL Magnesium 1.5 L (1.6-2.3) mg/dL Total Bilirubin 0.9 (0.2-1.3) mg/dL AST 1374 H (14-36) U/L ALT 243 H (9-52) U/L Alkaline Phosphatase 48 (38-126) U/L Troponin I (0.000-0.034) ng/mL Total Protein 6.0 L (6.3-8.2) g/dL Albumin 2.0 L (3.5-5.0) g/dL Urine Color Urine Appearance (Clear) Urine pH (5.0-8.0) Ur Specific [place] (1.001-1.035) Urine Protein (Negative) Urine Glucose (UA) (Negative) Urine Ketones (Negative) Urine Blood (Negative) Urine Nitrite (Negative) Urine Bilirubin (Negative) Urine Urobilinogen (<2.0) mg/dL Ur Leukocyte Esterase (Negative) Urine RBC (0-5) /hpf Urine WBC (0-5) /hpf Ur Squamous Epith Cells (0-4) /hpf Hyaline Casts (0-2) /lpf Urine Mucus (None) /hpf 06/03/18 06/03/18 06/03/18 Range/Units 21:44 21:44 21:46 WBC (3.8-10.6) k/uL RBC (3.80-5.40) m/uL Hgb (11.4-16.0) gm/dL Hct (34.0-46.0) % MCV (80.0-100.0) fL MCH (25.0-35.0) pg MCHC (31.0-37.0) g/dL RDW (11.5-15.5) % Plt Count (150-450) k/uL Neutrophils % (Manual) % Band Neutrophils % % Lymphocytes % (Manual) % Monocytes % (Manual) % Myelocytes % % Neutrophils # (Manual) (1.3-7.7) k/uL Lymphocytes # (Manual) (1.0-4.8) k/uL Monocytes # (Manual) (0-1.0) k/uL Myelocytes # (Manual) (0) k/uL Nucleated RBCs (0-0) /100 WBC Manual Slide Review Hypochromasia Macrocytosis PT (9.0-12.0) sec INR (<1.2) APTT (22.0-30.0) sec Sample Site rrad ABG pH 7.11 L* (7.35-7.45) ABG pCO2 47 H (35-45) mmHg ABG pO2 77 L (83-108) mmHg ABG HCO3 15 L (21-25) mmol/L ABG Total CO2 16 L (19-24) mmol/L ABG O2 Saturation 92.5 L (94-97) % ABG Base Excess -15.0 mmol/L Dionisio Test Yes FiO2 100 % Sodium (137-145) mmol/L Potassium (3.5-5.1) mmol/L Chloride (98-107) mmol/L Carbon Dioxide (22-30) mmol/L Anion Gap mmol/L BUN (7-17) mg/dL Creatinine (0.52-1.04) mg/dL Est GFR (CKD-EPI)AfAm (>60 ml/min/1.73 sqM) Est GFR (CKD-EPI)NonAf (>60 ml/min/1.73 sqM) Glucose (74-99) mg/dL POC Glucose (mg/dL) (75-99) mg/dL POC Glu Document Scanner ID Plasma Lactic Acid Rayo 8.2 H* (0.7-2.0) mmol/L Calcium (8.4-10.2) mg/dL Magnesium (1.6-2.3) mg/dL Total Bilirubin (0.2-1.3) mg/dL AST (14-36) U/L ALT (9-52) U/L Alkaline Phosphatase (38-126) U/L Troponin I <0.012 (0.000-0.034) ng/mL Total Protein (6.3-8.2) g/dL Albumin (3.5-5.0) g/dL Urine Color Urine Appearance (Clear) Urine pH (5.0-8.0) Ur Specific [place] (1.001-1.035) Urine Protein (Negative) Urine Glucose (UA) (Negative) Urine Ketones (Negative) Urine Blood (Negative) Urine Nitrite (Negative) Urine Bilirubin (Negative) Urine Urobilinogen (<2.0) mg/dL Ur Leukocyte Esterase (Negative) Urine RBC (0-5) /hpf Urine WBC (0-5) /hpf Ur Squamous Epith Cells (0-4) /hpf Hyaline Casts (0-2) /lpf Urine Mucus (None) /hpf 06/03/18 06/03/18 Range/Units 21:48 22:36 WBC (3.8-10.6) k/uL RBC (3.80-5.40) m/uL Hgb (11.4-16.0) gm/dL Hct (34.0-46.0) % MCV (80.0-100.0) fL MCH (25.0-35.0) pg MCHC (31.0-37.0) g/dL RDW (11.5-15.5) % Plt Count (150-450) k/uL Neutrophils % (Manual) % Band Neutrophils % % Lymphocytes % (Manual) % Monocytes % (Manual) % Myelocytes % % Neutrophils # (Manual) (1.3-7.7) k/uL Lymphocytes # (Manual) (1.0-4.8) k/uL Monocytes # (Manual) (0-1.0) k/uL Myelocytes # (Manual) (0) k/uL Nucleated RBCs (0-0) /100 WBC Manual Slide Review Hypochromasia Macrocytosis PT (9.0-12.0) sec INR (<1.2) APTT (22.0-30.0) sec Sample Site ABG pH (7.35-7.45) ABG pCO2 (35-45) mmHg ABG pO2 (83-108) mmHg ABG HCO3 (21-25) mmol/L ABG Total CO2 (19-24) mmol/L ABG O2 Saturation (94-97) % ABG Base Excess mmol/L Dionisio Test FiO2 % Sodium (137-145) mmol/L Potassium (3.5-5.1) mmol/L Chloride (98-107) mmol/L Carbon Dioxide (22-30) mmol/L Anion Gap mmol/L BUN (7-17) mg/dL Creatinine (0.52-1.04) mg/dL Est GFR (CKD-EPI)AfAm (>60 ml/min/1.73 sqM) Est GFR (CKD-EPI)NonAf (>60 ml/min/1.73 sqM) Glucose (74-99) mg/dL POC Glucose (mg/dL) 109 H (75-99) mg/dL POC Glu Document Scanner ID [place] Plasma Lactic Acid Rayo (0.7-2.0) mmol/L Calcium (8.4-10.2) mg/dL Magnesium (1.6-2.3) mg/dL Total Bilirubin (0.2-1.3) mg/dL AST (14-36) U/L ALT (9-52) U/L Alkaline Phosphatase (38-126) U/L Troponin I (0.000-0.034) ng/mL Total Protein (6.3-8.2) g/dL Albumin (3.5-5.0) g/dL Urine Color Light Red Urine Appearance Cloudy H (Clear) Urine pH 5.5 (5.0-8.0) Ur Specific [place] 1.038 H (1.001-1.035) Urine Protein 1+ H (Negative) Urine Glucose (UA) Negative (Negative) Urine Ketones Negative (Negative) Urine Blood Moderate H (Negative) Urine Nitrite Negative (Negative) Urine Bilirubin Negative (Negative) Urine Urobilinogen <2.0 (<2.0) mg/dL Ur Leukocyte Esterase Negative (Negative) Urine RBC 18 H (0-5) /hpf Urine WBC 43 H (0-5) /hpf Ur Squamous Epith Cells <1 (0-4) /hpf Hyaline Casts 11 H (0-2) /lpf Urine Mucus Rare H (None) /hpf Critical Care Time Critical Care Time: Yes Total Critical Care Time: 75 Disposition Clinical Impression: Septic shock, Respiratory failure, Community acquired pneumonia Disposition: ADMITTED IP TO THIS [facility] Condition: Serious Is patient prescribed a controlled substance at d/c from ED?: No Referrals: Randall Peña MD [Primary Care Provider] - 1-2 days Decision to Admit Reason: Admit from EC Decision Date: 06/03/18 Decision Time: 23:36
[2018-06-03] MEDS ORDERED: ALBUTEROL NEBULIZED 2.5 MG/3 ML INHALATION PRN (22:43)
[2018-06-03] MEDS ORDERED: VANCOMYCIN IV PER PHARMACY 1 EACH MISC MISCELLANE PRN (22:43)
--- NOTE | 2018-06-03 22:43 | XR ---
EXAM: XR Chest, 1 View CLINICAL HISTORY: chinedu TECHNIQUE: Frontal view of the chest. COMPARISON: L5 14 FINDINGS: Lungs: Endotracheal tube approximately 2.2 cm above the celso there is a right-sided central venous catheter distal tip in the right atrium bilateral dense infiltrates. No pneumothorax. . No cardiomegaly.. Gastric tube distal tip not identified noted to be in the distal stomach IMPRESSION: Bilateral dense infiltrates suggestive of infectious pneumonic process. Endotracheal tube 2.2 cm above the celso. Gastric tube distal tip not in that a 5 the distal stomach
[2018-06-03] MEDS ORDERED: VANCOMYCIN 1,500 MG in SODIUM CHLORIDE 0.9% 250 ML IVPB STA (22:46)
[2018-06-03] MEDS ORDERED: CEFEPIME 2 GM in SODIUM CHLORIDE 0.9% 100 ML IVPB STA (22:46)
[2018-06-03 22:47] LABS: Neutrophils % (M) 29 %
[2018-06-03 22:49] LABS: Band Neutrophils % 34 %; Lymphocytes # (M) 0.45 k/uL (1.0-4.8); Monocytes # (M) 0.03 k/uL (0-1.0); Myelocytes # (M) 0.06 k/uL (0); Myelocytes % 4 %; Nucleated Red Blood Cells 1 /100 WBC (0-0); Total Cells Counted 200
[2018-06-03 23:04] LABS: Appearance,Urine Cloudy (Clear); Bilirubin,Urine Negative (Negative); Blood,Urine Moderate (Negative); Color,Urine Light Red; Glucose,Urine (UA) Negative (Negative); Hyaline Casts,Urine 11 /lpf (0-2); Ketones,Urine Negative (Negative); Leukocyte Esterase,Urine Negative (Negative); Mucus,Urine Rare /hpf; Nitrite,Urine Negative (Negative); PH, Urine 5.5 (5.0-8.0); Protein,Urine 1+ (Negative); RBC,Urine 18 /hpf (0-5); Specific Gravity,Urine 1.038 (1.001-1.035); Squamous Epithelial Cell,Urine <1 /hpf (0-4); Urobilinogen,Urine <2.0 mg/dL (<2.0); WBC,Urine 43 /hpf (0-5)
[2018-06-03] MEDS: SODIUM CHLORIDE 0.9% 1,000 ML IV SCH (23:13)
[2018-06-03] MEDS ORDERED: OSELTAMIVIR 75 MG CAP PO STA (23:56)
[2018-06-04] MEDS ORDERED: NALOXONE 0.4 MG/ML 1 ML VIAL IV PRN ×2 (00:22→02:31)
[2018-06-04] MEDS ORDERED: ACETAMINOPHEN TAB 325 MG TAB PO PRN (00:22)
[2018-06-04] MEDS ORDERED: MORPHINE SULFATE 2 MG/ML SYRINGE IV PRN (00:22)
[2018-06-04 00:32] LABS: ABG Base Excess -17.3 mmol/L; ABG HCO3 15 mmol/L (21-25); ABG Oxygen Saturation 86.5 % (94-97); ABG PO2 72 mmHg (83-108); ABG TCO2 18 mmol/L (19-24)
[2018-06-04 00:38] LABS: ABG PCO2 75 mmHg (35-45); ABG PH <7.00 (7.35-7.45)
[2018-06-04] MEDS: methylPREDNISolone SOD SUCCI 125 MG/2 ML VIAL IV SCH ×3 (00:44→12:39)
[2018-06-04] MEDS ORDERED: CISATRACURIUM 2 MG/ML 5 ML VIAL IV ONE ×2 (01:35→01:50)
[2018-06-04] MEDS ORDERED: SODIUM BICARB 8.4% 50 ML SYR (1 MEQ/ML) IV ONE ×4 (01:36→08:42)
[2018-06-04] MEDS ORDERED: SODIUM CHLORIDE 0.9% 1,000 ML IV ONE ×2 (01:37→08:42)
[2018-06-04] MEDS ORDERED: DEXTROSE 50%-WATER 50 ML SYRINGE IVP STA (01:41)
[2018-06-04] MEDS ORDERED: CISATRACURIUM 200 MG in SODIUM CHLORIDE 0.9% 180 ML IV SCH (01:45)
[2018-06-04 01:59] LABS: Glucose,Whole Blood 62 mg/dL (75-99)
[2018-06-04 02:00] LABS: Glucose,Whole Blood 104 mg/dL (75-99)
[2018-06-04] MEDS: DEXTROSE 5% IN WATER 1,000 ML with SODIUM BICARB (1 MEQ/ML) 150 ML IV SCH ×2 (02:15→09:53)
[2018-06-04 02:32] LABS: Glucose,Whole Blood 114 mg/dL (75-99)
[2018-06-04] MEDS ORDERED: Magnesium Replacement Protocol 1 EACH MISC MISCELLANE PRN (02:38)
[2018-06-04 02:43] LABS: ABG Base Excess -17.1 mmol/L; ABG HCO3 15 mmol/L (21-25); ABG Oxygen Saturation 81.8 % (94-97); ABG PCO2 67 mmHg (35-45); ABG TCO2 17 mmol/L (19-24)
[2018-06-04] MEDS: MAGNESIUM SULFATE-D5W PMX 1 GM in DEXTROSE/WATER 1 100ML.BAG IVPB SCH ×2 (02:46→04:26)
[2018-06-04] MEDS: POTASSIUM CHLORIDE 10 MEQ in WATER FOR INJECTION 1 100ML.BAG IVPB SCH ×2 (02:47→04:25)
[2018-06-04 02:49] LABS: ABG PO2 59 mmHg (83-108)
[2018-06-04 03:16] LABS: Anisocytosis Slight; HCT 36.5 % (34.0-46.0); HGB 9.8 gm/dL (11.4-16.0); Hypochromasia Marked; MCHC 26.9 g/dL (31.0-37.0); Macrocytosis Marked; Mean Platelet Volume 7.5; Platelet Count 255 k/uL (150-450); RBC 3.28 m/uL (3.80-5.40)
[2018-06-04 03:24] LABS: MCV 111.5 fL (80.0-100.0); WBC 0.9 k/uL (3.8-10.6)
[2018-06-04 03:26] LABS: Magnesium 1.6 mg/dL (1.6-2.3); Phosphorus 7.3 mg/dL (2.5-4.5); Potassium 3.2 mmol/L (3.5-5.1)
[2018-06-04 03:39] VITALS: BMI 27.6
[2018-06-04 03:39] LABS: Glucose,Whole Blood 100 mg/dL (75-99)
[2018-06-04] MEDS: NOREPINEPHRINE 4 MG in SODIUM CHLORIDE 0.9% 250 ML IV ONE (04:17)
[2018-06-04 04:26] LABS: Polychromasia Present
[2018-06-04 04:41] LABS: Glucose,Whole Blood 93 mg/dL (75-99)
--- NOTE | 2018-06-04 06:23 | XR ---
EXAM: XR Chest, 1 View CLINICAL HISTORY: mechanical ventilation TECHNIQUE: Frontal view of the chest. COMPARISON: 06/03/18 2153 hrs. FINDINGS: Bilateral infiltrates with what appears to be increasing bilateral pleural effusions. Endotracheal tube, NG tube and right-sided intravenous catheter in good position. . IMPRESSION: Worsening bilateral infiltrates. Endotracheal tube NG tube and catheter in good position.
[2018-06-04 07:01] VITALS: RESP 30
[2018-06-04 07:22] LABS: Glucose,Whole Blood 97 mg/dL (75-99)
[2018-06-04] MEDS ORDERED: NOREPINEPHRINE 32 MG in SODIUM CHLORIDE 0.9% 218 ML IV SCH (07:30)
[2018-06-04] MEDS: IPRATROPIUM-ALBUTEROL 3 ML NEB INHALATION SCH ×4 (07:40→19:52)
[2018-06-04] MEDS ORDERED: HEPARIN SODIUM,PORCINE 5,000 UNIT/ML 1 ML VIAL SQ SCH (08:00)
[2018-06-04 08:03] LABS: ABG Base Excess -12.2 mmol/L; ABG HCO3 18 mmol/L (21-25); ABG Oxygen Saturation 85.3 % (94-97); ABG PCO2 57 mmHg (35-45); ABG TCO2 19 mmol/L (19-24)
[2018-06-04 08:06] LABS: ABG PO2 55 mmHg (83-108)
[2018-06-04] MEDS ORDERED: OSELTAMIVIR 60 MG/10 ML ORAL SYRINGE PO SCH (09:00)
[2018-06-04] MEDS ORDERED: PANTOPRAZOLE 40 MG/10 ML VIAL IV SCH (09:00)
[2018-06-04] MEDS ORDERED: metroNIDAZOLE 500 MG TAB PO SCH (09:00)
[2018-06-04] MEDS ORDERED: CHLORHEXIDINE GLUCONATE 15 ML CUP MUCOUS MEM SCH (09:00)
[2018-06-04] MEDS: SODIUM CHLORIDE 0.9% 1,000 ML IV SCH (09:01)
[2018-06-04 09:02] LABS: Albumin 1.8 g/dL (3.5-5.0); Calcium 6.7 mg/dL (8.4-10.2); Potassium 3.6 mmol/L (3.5-5.1); Total Bilirubin 0.8 mg/dL (0.2-1.3); Total Protein 5.1 g/dL (6.3-8.2)
[2018-06-04] MEDS: ARTIFICIAL TEARS-HYPROMELLOSE DROPS 15 ML BTL BOTH EYES SCH ×3 (09:02→12:39)
--- NOTE | 2018-06-04 09:17 | P.HPIM ---
History of Present Illness this is a pleasant 58 years old femalewith past medical history of hypertension, hyperlipidemia, COPD, CVA/TIA, cerebral aneurysm, liver disease , and call abuseand bipolar disorder, C. diff, history of GI bleed, Fall, she was knapp sferred from [facility] for pneumonia and sepsis, she was on BiPAP on arrival. She was hypotensive with blood pressure 77/49.in the emergency room patient got intubated. Patient went into septic shock. Her lactic acid was elevated. She received a total of 4 L of normal saline, bicarb motion and days later on on bicarbonate drip. Patient has been an you week. Patient has been transferred to the ICU for further management. as per staff family are aware of the patient's conditions and they made her DO NOT RESUSCITATE Review of Systems n/a Past Medical History Past Medical History: COPD, CVA/TIA, Hyperlipidemia, Hypertension, Liver Disease, Memory Impairment, Osteoarthritis (OA), Seizure Disorder Additional Past Medical History / Comment(s): cerebral aneurysm, bipolar disorder maintained on multiple psychotropic medications History of Any Multi-Drug Resistant Organisms: C-DIFF Date of last positivie culture/infection: 05/20/2018 MDRO Source:: stool Past Surgical History: Cholecystectomy, Tonsillectomy Additional Past Surgical History / Comment(s): , brain surgery x2 for aneurysm, catherterization to brain Past Anesthesia/Blood Transfusion Reactions: Unable to Obtain Past Psychological History: Anxiety, Bipolar, Schizophrenia Smoking Status: Current every day smoker Past Alcohol Use History: Daily Additional Past Alcohol Use History / Comment(s): ex- states that Sary has not drank in three months. Past Drug Use History: None Reported - Past Family History Father Family Medical History: COPD, Coronary Artery Disease (CAD), Diabetes Mellitus Mother Family Medical History: Cancer Medications and Allergies Home Medications Medication Instructions Recorded Confirmed Type Aspirin EC [Ecotrin] 325 mg PO DAILY 07/26/13 11/03/16 History Citalopram Hydrobromide 40 mg PO HS 07/26/13 11/03/16 History [Citalopram HBr] Gabapentin [Neurontin] 600 mg PO TID 07/26/13 11/03/16 History Methylphenidate HCl [Ritalin] 20 mg PO BID 07/26/13 11/03/16 History risperiDONE 4 mg PO HS 07/26/13 11/03/16 History traZODone HCL [traZODone] 150 mg PO HS 07/26/13 11/03/16 History Atorvastatin [Lipitor] 40 mg PO HS 07/04/16 11/03/16 History Cholecalciferol [Vitamin D3] 1,000 unit PO DAILY 07/04/16 11/03/16 History Lisinopril [Zestril] 10 mg PO DAILY 07/04/16 11/03/16 History Multivitamins, Thera [Multivitamin 1 tab PO DAILY 07/04/16 11/03/16 History (formulary)] Albuterol Inhaler [Ventolin Hfa 1 - 2 puff INHALATION RT-Q6H PRN 11/03/16 11/03/16 History Inhaler] Baclofen [Lioresal] 10 mg PO TID PRN 11/03/16 11/03/16 History Fluticasone/Salmeterol [Advair 1 inhalation PO RT-BID 11/03/16 11/03/16 History 500-50 Diskus] HYDROcodone/APAP 10-325MG [[place] 1 tab PO Q6H PRN 11/03/16 11/03/16 History 10-325] Meloxicam [Mobic] 15 mg PO DAILY 11/03/16 11/03/16 History Thiamine [Vitamin B-1] 100 mg PO DAILY 11/03/16 11/03/16 History Allergies Allergy/AdvReac Type Severity Reaction Status Date / Time iodine Allergy Unknown Verified 06/04/18 09:13 Penicillins Allergy Unknown Verified 06/04/18 09:13 Physical Exam Vitals: Vital Signs Temp Pulse Resp BP Pulse Ox 06/04/18 08:30 120 H 30 H 85/63 94 L 06/04/18 08:15 115 H 30 H 85/63 93 L 06/04/18 08:00 116 H 30 H 85/63 87 L 06/04/18 07:53 115 H 06/04/18 07:45 116 H 85/63 88 L 06/04/18 07:42 117 H 06/04/18 07:30 115 H 30 H 85/59 95 06/04/18 07:15 113 H 30 H 81/58 95 06/04/18 07:00 111 H 30 H 61/38 93 L 06/04/18 06:45 109 H 30 H 178/41 93 L 06/04/18 06:30 109 H 30 H 200/56 93 L 06/04/18 06:15 108 H 30 H 166/56 92 L 06/04/18 06:00 94.5 F L 107 H 30 H 92/53 94 L 06/04/18 05:45 112 H 89/57 73 L 06/04/18 05:30 109 H 31 H 86/56 76 L 06/04/18 05:15 108 H 30 H 95/61 77 L 06/04/18 05:00 108 H 30 H 90/59 77 L 06/04/18 04:45 107 H 30 H 93/59 79 L 06/04/18 04:30 109 H 30 H 92/62 86 L 06/04/18 04:15 106 H 30 H 83/55 83 L 06/04/18 04:00 93.9 F L 106 H 30 H 83/60 84 L 06/04/18 03:45 106 H 26 H 87/57 86 L 06/04/18 03:30 106 H 26 H 89/62 87 L 06/04/18 03:15 106 H 26 H 101/57 87 L 06/04/18 03:00 106 H 26 H 94/56 87 L 06/04/18 02:45 107 H 26 H 98/62 87 L 06/04/18 02:30 107 H 26 H 93/60 85 L 06/04/18 02:15 108 H 26 H 97/64 88 L 06/04/18 02:00 108 H 26 H 97/65 90 L 06/04/18 01:45 108 H 26 H 109/66 86 L 06/04/18 01:30 97.5 F L 105 H 18 84/58 86 L 06/04/18 00:46 97.6 F 107 H 18 89/59 89 L 06/04/18 00:40 108 H 06/04/18 00:26 108 H 06/04/18 00:00 97.8 F 105 H 18 83/62 87 L 06/03/18 23:30 110 H 18 91/66 97 06/03/18 23:15 112 H 18 101/73 89 L 06/03/18 23:02 117 H 18 114/78 90 L 06/03/18 22:45 117 H 18 108/72 90 L 06/03/18 22:30 113 H 18 72/44 85 L 06/03/18 22:15 100 18 76/50 85 L 06/03/18 22:12 113 H 28 H 06/03/18 22:06 113 H 29 H 06/03/18 22:00 111 H 29 H 71/51 97 06/03/18 21:45 110 H 28 H 77/49 94 L 06/03/18 21:34 97.3 F L 116 H 28 H 77/49 99 Intake and Output 06/03/18 06/04/18 06/04/18 22:59 06:59 14:59 Intake Total 34.478 2964.812 250 Output Total 25 0 Balance 34.478 2939.812 250 Intake: IV 2650 250 Dextrose 5% in Water 1, 750 150 000 ml @ 150 mls/hr IV . Q7H40M LEE with Sodium Bicarb (1 Meq/ml) 150 ml Rx#:[id number] Magnesium Sulfate-D5w Pmx 200 1 gm In Dextrose/Water 1 100ml.bag @ 100 mls/hr IVPB ONCE ONE Rx#: [id number] Potassium Chloride 10 meq 200 In Water For Injection 1 100ml.bag @ 100 mls/hr IVPB Q1H LEE Rx#: [id number] Sodium Chloride 0.9% 1, 500 100 000 ml @ 100 mls/hr IV . Q10H LEE Rx#:[id number] Sodium Chloride 0.9% 1, 1000 000 ml @ 999 mls/hr IV . Q1H1M ONE Rx#:[id number] Intake, IV Titration 34.478 314.812 Amount Cisatracurium 200 mg In 9.226 Sodium Chloride 0.9% 180 ml @ 1 MCG/KG/MIN 4.899 mls/hr IV .Q24H LEE Rx#: [id number] Norepinephrine 4 mg In 34.478 305.586 Sodium Chloride 0.9% 250 ml @ 0.05 MCG/KG/MIN 15. 554 mls/hr IV .[id number] ONE Rx#:[id number] Output: Urine 25 0 Other: Voiding Method Indwelling Catheter Weight 81.647 kg 84.9 kg ABP, PAP, CO, CI - Last 8 Hours Arterial Blood Pressure 87/52 Arterial Blood Pressure 78/46 GENERAL: The patient is intubated and sedated HEENT: Pupils are round and equally reacting to light. EOMI. No scleral icterus. No conjunctival pallor. Normocephalic, atraumatic. No pharyngeal erythema. No thyromegaly. CARDIOVASCULAR: S1 and S2 present. No murmurs, rubs, or gallops. PULMONARY: bilateral wheezing and crackles. with #sounds on both sides ABDOMEN: Soft, nontender, nondistended, normoactive bowel sounds. No palpable organomegaly. MUSCULOSKELETAL: No joint swelling or deformity. EXTREMITIES: No cyanosis, clubbing, or pedal edema. NEUROLOGICAL: Gross neurological examination did not reveal any focal deficits. SKIN: No rashes. Results CBC & Chem 7: 06/04/18 02:48 06/04/18 02:48 Labs: Abnormal Lab Results - Last 24 Hours (Table) 06/03/18 06/03/18 06/03/18 Range/Units 21:44 21:44 21:44 WBC 1.4 L* (3.8-10.6) k/uL RBC 3.36 L (3.80-5.40) m/uL Hgb 10.1 L (11.4-16.0) gm/dL MCV 106.2 H (80.0-100.0) fL MCHC 28.2 L (31.0-37.0) g/dL RDW 15.7 H (11.5-15.5) % Neutrophils # (Manual) 0.80 L (1.3-7.7) k/uL Lymphocytes # (Manual) 0.45 L (1.0-4.8) k/uL Myelocytes # (Manual) 0.06 H (0) k/uL Nucleated RBCs 1 H (0-0) /100 WBC PT 24.2 H (9.0-12.0) sec INR 2.5 H (<1.2) APTT 37.6 H (22.0-30.0) sec ABG pH (7.35-7.45) ABG pCO2 (35-45) mmHg ABG pO2 (83-108) mmHg ABG HCO3 (21-25) mmol/L ABG Total CO2 (19-24) mmol/L ABG O2 Saturation (94-97) % Sodium 136 L (137-145) mmol/L Potassium (3.5-5.1) mmol/L Chloride 109 H (98-107) mmol/L Carbon Dioxide 14 L (22-30) mmol/L Creatinine 1.18 H (0.52-1.04) mg/dL POC Glucose (mg/dL) (75-99) mg/dL Plasma Lactic Acid Rayo (0.7-2.0) mmol/L Calcium 7.8 L (8.4-10.2) mg/dL Phosphorus (2.5-4.5) mg/dL Magnesium 1.5 L (1.6-2.3) mg/dL AST 1374 H (14-36) U/L ALT 243 H (9-52) U/L Total Protein 6.0 L (6.3-8.2) g/dL Albumin 2.0 L (3.5-5.0) g/dL Urine Appearance (Clear) Ur Specific [place] (1.001-1.035) Urine Protein (Negative) Urine Blood (Negative) Urine RBC (0-5) /hpf Urine WBC (0-5) /hpf Hyaline Casts (0-2) /lpf Urine Mucus (None) /hpf Influenza Type A RNA (Not Detectd) 06/03/18 06/03/18 06/03/18 Range/Units 21:44 21:46 21:48 WBC (3.8-10.6) k/uL RBC (3.80-5.40) m/uL Hgb (11.4-16.0) gm/dL MCV (80.0-100.0) fL MCHC (31.0-37.0) g/dL RDW (11.5-15.5) % Neutrophils # (Manual) (1.3-7.7) k/uL Lymphocytes # (Manual) (1.0-4.8) k/uL Myelocytes # (Manual) (0) k/uL Nucleated RBCs (0-0) /100 WBC PT (9.0-12.0) sec INR (<1.2) APTT (22.0-30.0) sec ABG pH 7.11 L* (7.35-7.45) ABG pCO2 47 H (35-45) mmHg ABG pO2 77 L (83-108) mmHg ABG HCO3 15 L (21-25) mmol/L ABG Total CO2 16 L (19-24) mmol/L ABG O2 Saturation 92.5 L (94-97) % Sodium (137-145) mmol/L Potassium (3.5-5.1) mmol/L Chloride (98-107) mmol/L Carbon Dioxide (22-30) mmol/L Creatinine (0.52-1.04) mg/dL POC Glucose (mg/dL) 109 H (75-99) mg/dL Plasma Lactic Acid Rayo 8.2 H* (0.7-2.0) mmol/L Calcium (8.4-10.2) mg/dL Phosphorus (2.5-4.5) mg/dL Magnesium (1.6-2.3) mg/dL AST (14-36) U/L ALT (9-52) U/L Total Protein (6.3-8.2) g/dL Albumin (3.5-5.0) g/dL Urine Appearance (Clear) Ur Specific [place] (1.001-1.035) Urine Protein (Negative) Urine Blood (Negative) Urine RBC (0-5) /hpf Urine WBC (0-5) /hpf Hyaline Casts (0-2) /lpf Urine Mucus (None) /hpf Influenza Type A RNA (Not Detectd) 06/03/18 06/03/18 06/04/18 Range/Units 22:36 23:24 00:25 WBC (3.8-10.6) k/uL RBC (3.80-5.40) m/uL Hgb (11.4-16.0) gm/dL MCV (80.0-100.0) fL MCHC (31.0-37.0) g/dL RDW (11.5-15.5) % Neutrophils # (Manual) (1.3-7.7) k/uL Lymphocytes # (Manual) (1.0-4.8) k/uL Myelocytes # (Manual) (0) k/uL Nucleated RBCs (0-0) /100 WBC PT (9.0-12.0) sec INR (<1.2) APTT (22.0-30.0) sec ABG pH <7.00 L* (7.35-7.45) ABG pCO2 75 H* (35-45) mmHg ABG pO2 72 L (83-108) mmHg ABG HCO3 15 L (21-25) mmol/L ABG Total CO2 18 L (19-24) mmol/L ABG O2 Saturation 86.5 L (94-97) % Sodium (137-145) mmol/L Potassium (3.5-5.1) mmol/L Chloride (98-107) mmol/L Carbon Dioxide (22-30) mmol/L Creatinine (0.52-1.04) mg/dL POC Glucose (mg/dL) (75-99) mg/dL Plasma Lactic Acid [place] (0.7-2.0) mmol/L Calcium (8.4-10.2) mg/dL Phosphorus (2.5-4.5) mg/dL Magnesium (1.6-2.3) mg/dL AST (14-36) U/L ALT (9-52) U/L Total Protein (6.3-8.2) g/dL Albumin (3.5-5.0) g/dL Urine Appearance Cloudy H (Clear) Ur Specific [place] 1.038 H (1.001-1.035) Urine Protein 1+ H (Negative) Urine Blood Moderate H (Negative) Urine RBC 18 H (0-5) /hpf Urine WBC 43 H (0-5) /hpf Hyaline Casts 11 H (0-2) /lpf Urine Mucus Rare H (None) /hpf Influenza Type A RNA Detected H (Not Detectd) 06/04/18 06/04/18 06/04/18 Range/Units 01:42 01:56 02:28 WBC (3.8-10.6) k/uL RBC (3.80-5.40) m/uL Hgb (11.4-16.0) gm/dL MCV (80.0-100.0) fL MCHC (31.0-37.0) g/dL RDW (11.5-15.5) % Neutrophils # (Manual) (1.3-7.7) k/uL Lymphocytes # (Manual) (1.0-4.8) k/uL Myelocytes # (Manual) (0) k/uL Nucleated RBCs (0-0) /100 WBC PT (9.0-12.0) sec INR (<1.2) APTT (22.0-30.0) sec ABG pH (7.35-7.45) ABG pCO2 (35-45) mmHg ABG pO2 (83-108) mmHg ABG HCO3 (21-25) mmol/L ABG Total CO2 (19-24) mmol/L ABG O2 Saturation (94-97) % Sodium (137-145) mmol/L Potassium (3.5-5.1) mmol/L Chloride (98-107) mmol/L Carbon Dioxide (22-30) mmol/L Creatinine (0.52-1.04) mg/dL POC Glucose (mg/dL) 62 L 104 H 114 H (75-99) mg/dL Plasma Lactic Acid [place] (0.7-2.0) mmol/L Calcium (8.4-10.2) mg/dL Phosphorus (2.5-4.5) mg/dL Magnesium (1.6-2.3) mg/dL AST (14-36) U/L ALT (9-52) U/L Total Protein (6.3-8.2) g/dL Albumin (3.5-5.0) g/dL Urine Appearance (Clear) Ur Specific [place] (1.001-1.035) Urine Protein (Negative) Urine Blood (Negative) Urine RBC (0-5) /hpf Urine WBC (0-5) /hpf Hyaline Casts (0-2) /lpf Urine Mucus (None) /hpf Influenza Type A RNA (Not Detectd) 06/04/18 06/04/18 06/04/18 Range/Units 02:39 02:48 02:48 WBC 0.9 L* (3.8-10.6) k/uL RBC 3.28 L (3.80-5.40) m/uL Hgb 9.8 L (11.4-16.0) gm/dL MCV 111.5 H D (80.0-100.0) fL MCHC 26.9 L (31.0-37.0) g/dL RDW 16.0 H (11.5-15.5) % Neutrophils # (Manual) (1.3-7.7) k/uL Lymphocytes # (Manual) (1.0-4.8) k/uL Myelocytes # (Manual) (0) k/uL Nucleated RBCs (0-0) /100 WBC PT (9.0-12.0) sec INR (<1.2) APTT (22.0-30.0) sec ABG pH <7.00 L* (7.35-7.45) ABG pCO2 67 H (35-45) mmHg ABG pO2 59 L* (83-108) mmHg ABG HCO3 15 L (21-25) mmol/L ABG Total CO2 17 L (19-24) mmol/L ABG O2 Saturation 81.8 L (94-97) % Sodium (137-145) mmol/L Potassium (3.5-5.1) mmol/L Chloride (98-107) mmol/L Carbon Dioxide (22-30) mmol/L Creatinine (0.52-1.04) mg/dL POC Glucose (mg/dL) (75-99) mg/dL Plasma Lactic Acid [place] 7.1 H* (0.7-2.0) mmol/L Calcium (8.4-10.2) mg/dL Phosphorus (2.5-4.5) mg/dL Magnesium (1.6-2.3) mg/dL AST (14-36) U/L ALT (9-52) U/L Total Protein (6.3-8.2) g/dL Albumin (3.5-5.0) g/dL Urine Appearance (Clear) Ur Specific [place] (1.001-1.035) Urine Protein (Negative) Urine Blood (Negative) Urine RBC (0-5) /hpf Urine WBC (0-5) /hpf Hyaline Casts (0-2) /lpf Urine Mucus (None) /hpf Influenza Type A RNA (Not Detectd) 06/04/18 06/04/18 06/04/18 Range/Units 02:48 03:13 07:56 WBC (3.8-10.6) k/uL RBC (3.80-5.40) m/uL Hgb (11.4-16.0) gm/dL MCV (80.0-100.0) fL MCHC (31.0-37.0) g/dL RDW (11.5-15.5) % Neutrophils # (Manual) (1.3-7.7) k/uL Lymphocytes # (Manual) (1.0-4.8) k/uL Myelocytes # (Manual) (0) k/uL Nucleated RBCs (0-0) /100 WBC PT (9.0-12.0) sec INR (<1.2) APTT (22.0-30.0) sec ABG pH 7.10 L* (7.35-7.45) ABG pCO2 57 H (35-45) mmHg ABG pO2 55 L* (83-108) mmHg ABG HCO3 18 L (21-25) mmol/L ABG Total CO2 (19-24) mmol/L ABG O2 Saturation 85.3 L (94-97) % Sodium (137-145) mmol/L Potassium 3.2 L (3.5-5.1) mmol/L Chloride 114 H (98-107) mmol/L Carbon Dioxide 13 L (22-30) mmol/L Creatinine 1.18 H (0.52-1.04) mg/dL POC Glucose (mg/dL) 100 H (75-99) mg/dL Plasma Lactic Acid [place] (0.7-2.0) mmol/L Calcium 7.0 L (8.4-10.2) mg/dL Phosphorus 7.3 H (2.5-4.5) mg/dL Magnesium (1.6-2.3) mg/dL AST (14-36) U/L ALT (9-52) U/L Total Protein (6.3-8.2) g/dL Albumin (3.5-5.0) g/dL Urine Appearance (Clear) Ur Specific [place] (1.001-1.035) Urine Protein (Negative) Urine Blood (Negative) Urine RBC (0-5) /hpf Urine WBC (0-5) /hpf Hyaline Casts (0-2) /lpf Urine Mucus (None) /hpf Influenza Type A RNA (Not Detectd) Thrombosis Risk Factor Assmnt - Choose All That Apply Each Factor Represents 1 point: Abnormal pulmonary function (COPD), Age 41-60 years, Medical pt on bed rest, Obesity (BMI >25), Sepsis (< 1month) Other Risk Factors: Yes Each Risk Factor Represents 2 Points: Central venous access Thrombosis Risk Factor Assessment Total Risk Factor Score: 7 Thrombosis Risk Factor Assessment Level: High Risk Assessment and Plan Assessment: acute hypoxic respiratory failure, needing intubation septic shock Pneumonia, concern for aspiration pneumonia possible ARDS acute Influenza infection recent C. diff, with possible ongoing infection Hypertension Hyperlipidemia History of COPD History of CVA/TIA and cerebral aneurysm History of liver disease History of bipolar disorder History of C. diff Plan: this is a 58 years old female who presents with septic shock, pneumonia, possibly ARDS and influenza. Patient on several antibiotics including Tamiflu, IV vancomycin, cefepime. Also she is on Flagyl. She is intubated and management by critical care team their input is appreciated. She is on norepinephrine drip for she is in septic shock. She is anuric. Melchor catheter is in place. Patient is in critical condition. Family aware as per staff. Labs and medication were reviewed.. Continue same treatment. Continue with symptomatic treatment. Resume home medication. Monitor lytes and vitals. DVT and GI prophylaxis. Further recommendations of the clinical course of the patient DVT prophylaxis: Subcutaneous heparin GI Prophylaxis: ppi Prognosis is guarded
[2018-06-04] MEDS ORDERED: Potassium Replacement Protocol 1 EACH MISC MISCELLANE PRN (09:55)
[2018-06-04] MEDS ORDERED: POTASSIUM CHLORIDE 20 MEQ in WATER FOR INJECTION 1 100ML.BAG IVPB ONE (10:00)
[2018-06-04 11:54] LABS: ABG Base Excess -10.2 mmol/L; ABG HCO3 19 mmol/L (21-25); ABG Oxygen Saturation 83.8 % (94-97); ABG PCO2 60 mmHg (35-45); ABG TCO2 21 mmol/L (19-24)
[2018-06-04 11:58] LABS: ABG PH 7.11 (7.35-7.45)
[2018-06-04 11:59] LABS: ABG PO2 54 mmHg (83-108)
[2018-06-04 12:05] LABS: Glucose,Whole Blood 89 mg/dL (75-99)
[2018-06-04] MEDS ORDERED: SODIUM CHLORIDE 0.9% 150 ML with VASOPRESSIN 60 UNIT IV SCH ×2 (12:30)
--- NOTE | 2018-06-04 12:31 | P.CNPUL ---
History of Present Illness Consult date: 06/04/18 Reason for consult: pneumonia, other (Acute septic shock) Chief complaint: Shortness of breath History of present illness: This is a 58-year-old female with history of hypertension, hyperlipidemia, COPD, previous CVA, liver disease, cerebral aneurysm, bipolar disorder, recent C. difficile colitis about 2 weeks ago which was treated, history of GI bleeding, patient was transferred last night from [facility] where in she presented with shortness of breath, and she was noted to have bilateral pneumonia. [place] was diagnosed as having sepsis, placed on BiPAP, and arrangements were made to transfer the patient to [facility]. Upon arrival to the ER, the patient was noted to be hypotensive and extremely acidotic, patient was intubated by the ER physician, and clearly the patient had a presentation of acute septic shock. Her lactic acid was elevated, she was hypotensive did not improve much with fluids, she received a total of 4 L of fluids initially, then she was placed on norepinephrine. She is presently on 60 mcg/m of norepinephrine. And we are likely to add vasopressin. Patient is maintained on high FiO2 100%, she is also on high PEEP at 16 at present, and she is on assist control rate of 30, tidal volume of 400, 100%, and PEEP is 16 at present. She is also on sodium bicarb drip, and her ABG now showed a pO2 of 54 pCO2 of 60 pH of 7.11. Chest x-ray showed diffuse infiltrates, consistent with ARDS. Her initial labs including her liver enzymes were noted to be abnormal with AST of 1082, ALT of 206, and her BUN was 10 creatinine 1.34. Patient is presently sedated, Nimbex, and on propofol drip. Review of Systems ROS unobtainable: due to endotracheal tube Past Medical History Past Medical History: COPD, CVA/TIA, Hyperlipidemia, Hypertension, Liver Disease, Memory Impairment, Osteoarthritis (OA), Seizure Disorder Additional Past Medical History / Comment(s): cerebral aneurysm, bipolar disorder maintained on multiple psychotropic medications History of Any Multi-Drug Resistant Organisms: C-DIFF Date of last positivie culture/infection: 05/20/2018 MDRO Source:: stool Past Surgical History: Cholecystectomy, Tonsillectomy Additional Past Surgical History / Comment(s): , brain surgery x2 for aneurysm, catherterization to brain Past Anesthesia/Blood Transfusion Reactions: Unable to Obtain Past Psychological History: Anxiety, Bipolar, Schizophrenia Smoking Status: Current every day smoker Past Alcohol Use History: Daily Additional Past Alcohol Use History / Comment(s): ex- states that Sary has not drank in three months. Past Drug Use History: None Reported - Past Family History Father Family Medical History: COPD, Coronary Artery Disease (CAD), Diabetes Mellitus Mother Family Medical History: Cancer Medications and Allergies Home Medications Medication Instructions Recorded Confirmed Type Aspirin EC [Ecotrin] 325 mg PO DAILY 07/26/13 11/03/16 History Citalopram Hydrobromide 40 mg PO HS 07/26/13 11/03/16 History [Citalopram HBr] Gabapentin [Neurontin] 600 mg PO TID 07/26/13 11/03/16 History Methylphenidate HCl [Ritalin] 20 mg PO BID 07/26/13 11/03/16 History risperiDONE 4 mg PO HS 07/26/13 11/03/16 History traZODone HCL [traZODone] 150 mg PO HS 07/26/13 11/03/16 History Atorvastatin [Lipitor] 40 mg PO HS 07/04/16 11/03/16 History Cholecalciferol [Vitamin D3] 1,000 unit PO DAILY 07/04/16 11/03/16 History Lisinopril [Zestril] 10 mg PO DAILY 07/04/16 11/03/16 History Multivitamins, Thera [Multivitamin 1 tab PO DAILY 07/04/16 11/03/16 History (formulary)] Albuterol Inhaler [Ventolin Hfa 1 - 2 puff INHALATION RT-Q6H PRN 11/03/16 11/03/16 History Inhaler] Baclofen [Lioresal] 10 mg PO TID PRN 11/03/16 11/03/16 History Fluticasone/Salmeterol [Advair 1 inhalation PO RT-BID 11/03/16 11/03/16 History 500-50 Diskus] HYDROcodone/APAP 10-325MG [[place] 1 tab PO Q6H PRN 11/03/16 11/03/16 History 10-325] Meloxicam [Mobic] 15 mg PO DAILY 08/29/17 08/29/17 History Thiamine [Vitamin B-1] 100 mg PO DAILY 11/03/16 11/03/16 History Allergies Allergy/AdvReac Type Severity Reaction Status Date / Time iodine Allergy Unknown Verified 06/04/18 09:13 Penicillins Allergy Unknown Verified 06/04/18 09:13 Physical Exam Vitals: Vital Signs Temp Pulse Resp BP Pulse Ox 06/04/18 11:35 125 H 06/04/18 11:21 124 H 06/04/18 10:30 126 H 30 H 96/66 89 L 06/04/18 10:15 125 H 30 H 96/66 89 L 06/04/18 10:00 126 H 30 H 96/66 87 L 06/04/18 09:45 125 H 31 H 99/70 89 L 06/04/18 09:30 125 H 30 H 91 L 06/04/18 09:15 125 H 30 H 92 L 06/04/18 09:00 125 H 30 H 85/63 92 L 06/04/18 08:45 97.9 F 122 H 30 H 92 L 06/04/18 08:30 120 H 30 H 85/63 94 L 06/04/18 08:15 115 H 30 H 85/63 93 L 06/04/18 08:00 116 H 30 H 85/63 87 L 06/04/18 07:53 115 H 06/04/18 07:45 116 H 85/63 88 L 06/04/18 07:42 117 H 06/04/18 07:30 115 H 30 H 85/59 95 06/04/18 07:15 113 H 30 H 81/58 95 06/04/18 07:00 111 H 30 H 61/38 93 L 06/04/18 06:45 109 H 30 H 178/41 93 L 06/04/18 06:30 109 H 30 H 200/56 93 L 06/04/18 06:15 108 H 30 H 166/56 92 L 06/04/18 06:00 94.5 F L 107 H 30 H 92/53 94 L 06/04/18 05:45 112 H 89/57 73 L 06/04/18 05:30 109 H 31 H 86/56 76 L 06/04/18 05:15 108 H 30 H 95/61 77 L 06/04/18 05:00 108 H 30 H 90/59 77 L 06/04/18 04:45 107 H 30 H 93/59 79 L 06/04/18 04:30 109 H 30 H 92/62 86 L 06/04/18 04:15 106 H 30 H 83/55 83 L 06/04/18 04:00 93.9 F L 106 H 30 H 83/60 84 L 06/04/18 03:45 106 H 26 H 87/57 86 L 06/04/18 03:30 106 H 26 H 89/62 87 L 06/04/18 03:15 106 H 26 H 101/57 87 L 06/04/18 03:00 106 H 26 H 94/56 87 L 06/04/18 02:45 107 H 26 H 98/62 87 L 06/04/18 02:30 107 H 26 H 93/60 85 L 06/04/18 02:15 108 H 26 H 97/64 88 L 06/04/18 02:00 108 H 26 H 97/65 90 L 06/04/18 01:45 108 H 26 H 109/66 86 L 06/04/18 01:30 97.5 F L 105 H 18 84/58 86 L 06/04/18 00:46 97.6 F 107 H 18 89/59 89 L 06/04/18 00:40 108 H 06/04/18 00:26 108 H 06/04/18 00:00 97.8 F 105 H 18 83/62 87 L 06/03/18 23:30 110 H 18 91/66 97 06/03/18 23:15 112 H 18 101/73 89 L 06/03/18 23:02 117 H 18 114/78 90 L 06/03/18 22:45 117 H 18 108/72 90 L 06/03/18 22:30 113 H 18 72/44 85 L 06/03/18 22:15 100 18 76/50 85 L 06/03/18 22:12 113 H 28 H 06/03/18 22:06 113 H 29 H 06/03/18 22:00 111 H 29 H 71/51 97 06/03/18 21:45 110 H 28 H 77/49 94 L 06/03/18 21:34 97.3 F L 116 H 28 H 77/49 99 Intake and Output 06/03/18 06/04/18 06/04/18 22:59 06:59 14:59 Intake Total 34.478 2964.812 2100 Output Total 25 0 Balance 34.478 2939.812 2100 Intake: IV 2650 2100 Dextrose 5% in Water 1, 750 600 000 ml @ 150 mls/hr IV . Q7H40M LEE with Sodium Bicarb (1 Meq/ml) 150 ml Rx#:[id number] Magnesium Sulfate-D5w Pmx 200 1 gm In Dextrose/Water 1 100ml.bag @ 100 mls/hr IVPB ONCE ONE Rx#: [id number] Potassium Chloride 10 meq 200 In Water For Injection 1 100ml.bag @ 100 mls/hr IVPB Q1H LEE Rx#: [id number] Potassium Chloride 20 meq 100 In Water For Injection 1 100ml.bag @ 50 mls/hr IVPB ONCE ONE Rx#: [id number] Sodium Chloride 0.9% 1, 500 400 000 ml @ 100 mls/hr IV . Q10H [facility] Rx#:[id number] Sodium Chloride 0.9% 1, 1000 1000 000 ml @ 999 mls/hr IV . Q1H1M ONE Rx#:[id number] Intake, IV Titration 34.478 314.812 Amount Cisatracurium 200 mg In 9.226 Sodium Chloride 0.9% 180 ml @ 1 MCG/KG/MIN 4.899 mls/hr IV .Q24H [facility] Rx#: [id number] Norepinephrine 4 mg In 34.478 305.586 Sodium Chloride 0.9% 250 ml @ 0.05 MCG/KG/MIN 15. 554 mls/hr IV .[id number] ONE Rx#:[id number] Output: Urine 25 0 Other: Voiding Method Indwelling Catheter Indwelling Catheter Weight 81.647 kg 84.9 kg ABP, PAP, CO, CI - Last 8 Hours Arterial Blood Pressure 74/51 Arterial Blood Pressure 77/53 Arterial Blood Pressure 78/49 Arterial Blood Pressure 82/51 Arterial Blood Pressure 87/53 Arterial Blood Pressure 92/54 Arterial Blood Pressure 96/55 Arterial Blood Pressure 93/55 Arterial Blood Pressure 87/52 Arterial Blood Pressure 78/46 Physical Exam: Revealed a 58-year-old female on mechanical ventilation, sedated and paralyzed, in no distress at present. Head: Atraumatic, normocephalic. Endotracheal tube and orogastric tube were intact. HEENT:[Neck is supple.] [No neck masses.] [No thyromegaly.] [No JVD.] PERRLA, EOMI, no icterus. No pharyngeal erythema. Chest: [Bilateral crackles and wheezes noted especially at the bases, rhonchi were also noted. Symmetrical chest expansion. Cardiac Exam: [Normal S1 and S2, no S3 gallop, no murmur.] Abdomen: [Soft, nontender, no megaly, no rebound, no guarding, normal bowel sounds.] Extremities: [No clubbing, no edema, no cyanosis.] Neurological Exam: Not be addressed, patient is presently paralyzed and sedated. Psychiatric could not be assessed. Lymphatics: No lymphadenopathy. Results - Laboratory Findings CBC and BMP: 06/04/18 02:48 06/04/18 07:39 ABG ABG pH 7.11 (7.35-7.45) L* 06/04/18 11:52 ABG pCO2 60 mmHg (35-45) H 06/04/18 11:52 ABG pO2 54 mmHg (83-108) L* 06/04/18 11:52 ABG O2 Saturation 83.8 % (94-97) L 06/04/18 11:52 PT/INR, D-dimer PT 24.2 sec (9.0-12.0) H 06/03/18 21:44 INR 2.5 (<1.2) H 06/03/18 21:44 Abnormal lab findings: Abnormal Labs 06/03/18 06/03/18 06/03/18 21:44 21:44 21:44 WBC 1.4 L* RBC 3.36 L Hgb 10.1 L MCV 106.2 H MCHC 28.2 L RDW 15.7 H Neutrophils # (Manual) 0.80 L Lymphocytes # (Manual) 0.45 L Myelocytes # (Manual) 0.06 H Nucleated RBCs 1 H PT 24.2 H INR 2.5 H APTT 37.6 H ABG pH ABG pCO2 ABG pO2 ABG HCO3 ABG Total CO2 ABG O2 Saturation Sodium 136 L Potassium Chloride 109 H Carbon Dioxide 14 L Creatinine 1.18 H POC Glucose (mg/dL) Plasma Lactic Acid Rayo Calcium 7.8 L Phosphorus Magnesium 1.5 L AST 1374 H ALT 243 H Total Protein 6.0 L Albumin 2.0 L Urine Appearance Ur Specific [place] Urine Protein Urine Blood Urine RBC Urine WBC Hyaline Casts Urine Mucus Influenza Type A RNA 06/03/18 06/03/18 06/03/18 21:44 21:46 21:48 WBC RBC Hgb MCV MCHC RDW Neutrophils # (Manual) Lymphocytes # (Manual) Myelocytes # (Manual) Nucleated RBCs PT INR APTT ABG pH 7.11 L* ABG pCO2 47 H ABG pO2 77 L ABG HCO3 15 L ABG Total CO2 16 L ABG O2 Saturation 92.5 L Sodium Potassium Chloride Carbon Dioxide Creatinine POC Glucose (mg/dL) 109 H Plasma Lactic Acid Rayo 8.2 H* Calcium Phosphorus Magnesium AST ALT Total Protein Albumin Urine Appearance Ur Specific [place] Urine Protein Urine Blood Urine RBC Urine WBC Hyaline Casts Urine Mucus Influenza Type A RNA 06/03/18 06/03/18 06/04/18 22:36 23:24 00:25 WBC RBC Hgb MCV MCHC RDW Neutrophils # (Manual) Lymphocytes # (Manual) Myelocytes # (Manual) Nucleated RBCs PT INR APTT ABG pH <7.00 L* ABG pCO2 75 H* ABG pO2 72 L ABG HCO3 15 L ABG Total CO2 18 L ABG O2 Saturation 86.5 L Sodium Potassium Chloride Carbon Dioxide Creatinine POC Glucose (mg/dL) Plasma Lactic Acid Rayo Calcium Phosphorus Magnesium AST ALT Total Protein Albumin Urine Appearance Cloudy H Ur Specific [place] 1.038 H Urine Protein 1+ H Urine Blood Moderate H Urine RBC 18 H Urine WBC 43 H Hyaline Casts 11 H Urine Mucus Rare H Influenza Type A RNA Detected H 06/04/18 06/04/18 06/04/18 01:42 01:56 02:28 WBC RBC Hgb MCV MCHC RDW Neutrophils # (Manual) Lymphocytes # (Manual) Myelocytes # (Manual) Nucleated RBCs PT INR APTT ABG pH ABG pCO2 ABG pO2 ABG HCO3 ABG Total CO2 ABG O2 Saturation Sodium Potassium Chloride Carbon Dioxide Creatinine POC Glucose (mg/dL) 62 L 104 H 114 H Plasma Lactic Acid Rayo Calcium Phosphorus Magnesium AST ALT Total Protein Albumin Urine Appearance Ur Specific [place] Urine Protein Urine Blood Urine RBC Urine WBC Hyaline Casts Urine Mucus Influenza Type A RNA 06/04/18 06/04/18 06/04/18 02:39 02:48 02:48 WBC 0.9 L* RBC 3.28 L Hgb 9.8 L MCV 111.5 H D MCHC 26.9 L RDW 16.0 H Neutrophils # (Manual) Lymphocytes # (Manual) Myelocytes # (Manual) Nucleated RBCs PT INR APTT ABG pH <7.00 L* ABG pCO2 67 H ABG pO2 59 L* ABG HCO3 15 L ABG Total CO2 17 L ABG O2 Saturation 81.8 L Sodium Potassium Chloride Carbon Dioxide Creatinine POC Glucose (mg/dL) Plasma Lactic Acid Rayo 7.1 H* Calcium Phosphorus Magnesium AST ALT Total Protein Albumin Urine Appearance Ur Specific [place] Urine Protein Urine Blood Urine RBC Urine WBC Hyaline Casts Urine Mucus Influenza Type A RNA 06/04/18 06/04/18 06/04/18 02:48 03:13 07:39 WBC RBC Hgb MCV MCHC RDW Neutrophils # (Manual) Lymphocytes # (Manual) Myelocytes # (Manual) Nucleated RBCs PT INR APTT ABG pH ABG pCO2 ABG pO2 ABG HCO3 ABG Total CO2 ABG O2 Saturation Sodium Potassium 3.2 L Chloride 114 H 109 H Carbon Dioxide 13 L 19 L Creatinine 1.18 H 1.34 H POC Glucose (mg/dL) 100 H Plasma Lactic Acid Rayo Calcium 7.0 L 6.7 L Phosphorus 7.3 H Magnesium AST 1082 H ALT 206 H Total Protein 5.1 L Albumin 1.8 L Urine Appearance Ur Specific [place] Urine Protein Urine Blood Urine RBC Urine WBC Hyaline Casts Urine Mucus Influenza Type A RNA 06/04/18 06/04/18 07:56 11:52 WBC RBC Hgb MCV MCHC RDW Neutrophils # (Manual) Lymphocytes # (Manual) Myelocytes # (Manual) Nucleated RBCs PT INR APTT ABG pH 7.10 L* 7.11 L* ABG pCO2 57 H 60 H ABG pO2 55 L* 54 L* ABG HCO3 18 L 19 L ABG Total CO2 ABG O2 Saturation 85.3 L 83.8 L Sodium Potassium Chloride Carbon Dioxide Creatinine POC Glucose (mg/dL) Plasma Lactic Acid Rayo Calcium Phosphorus Magnesium AST ALT Total Protein Albumin Urine Appearance Ur Specific [place] Urine Protein Urine Blood Urine RBC Urine WBC Hyaline Casts Urine Mucus Influenza Type A RNA - Diagnostic Findings Chest x-ray: image reviewed (Bilateral infiltrates consistent with ARDS) Assessment and Plan Assessment: Impression: Acute hypoxic respiratory failure secondary to septic shock secondary to pneumonia, ARDS Recent episode of influenza infection Recent episode of C. difficile colitis History of underlying COPD History of benign essential hypertension Aspiration pneumonia is not entirely ruled out, and possibly felt to be quite likely. History of multiple comorbidities including CVA, TIA, liver disease, bipolar disorder. Recommendation: Patient will be kept on mechanical ventilation, her ventilator settings where reviewed and adjusted. Presently on assist control rate of 30 tidal volume of 400 FiO2 of 100% and PEEP is 16. She is definitely at high risk of developing barotrauma/pneumothorax. Patient will remain on Versed drip, Nimbex drip, norepinephrine drip, she will have nutritional support via enteral feeding, right brachial arterial line was placed, updated her family including and children at bedside about her condition, and they are made aware of her poor prognostic picture. CODE STATUS was discussed, and patient is not to be resuscitated no CPR if the patient develops any cardiac arrest. Otherwise will continue present. Or supportive care measures for now. Family is again is very well aware of her poor prognosis. We'll continue to follow. Critical care time is 55 minutes, not including the time spent on right brachial arterial line placement. Time with Patient: Greater than 30
--- NOTE | 2018-06-04 12:45 | PCN ---
PROCEDURE NOTE OPERATIVE REPORT: Placement of the right brachial arterial line. PREOPERATIVE DIAGNOSIS: Acute septic shock. POSTOPERATIVE DIAGNOSIS: Acute septic shock. ANESTHESIA: Used none deployed. PROCEDURE IN DETAIL: The patient was placed in the supine position, the right brachial region was prepared in a sterile fashion and drapes were applied. The right brachial artery was palpated, cannulated easily, and a guidewire was placed. A Cook's catheter was inserted over the guidewire, the guidewire was removed. Good blood flow and good waveform were noted, no evidence of any immediate complications. MMODL / IJN: [id number] /
[2018-06-04 13:26] VITALS: TEMP 100.5
--- NOTE | 2018-06-04 13:32 | P.NPCON ---
History of Present Illness - Reason for Consult Consult date: 06/04/18 acute renal failure - Chief Complaint Hypoxemia on BiPAP - History of Present Illness Transfer from outside hospital, [facility]. Presented to the hospital with hypoxia and shortness of breath, placed on BiPAP and chest x-ray showed bilateral pneumonia. She was transferred to the facility yesterday intubated currently on a ventilator. She is on levo fed and vasopressin as well. Baseline creatinine 0.9 MG per DL. Presented to the hospital With a creatinine of 1.1 and 1.3 today. She has oliguria. History of alcohol abuse in the past, C. diff colitis recently treated. No history of nausea vomiting or diarrhea. No NSAID use or recent contrast studies. Home medications include lisinopril. *The history is obtained from the chart. Review of Systems ROS unobtainable: due to endotracheal tube Past Medical History Past Medical History: COPD, CVA/TIA, Hyperlipidemia, Hypertension, Liver Disease, Memory Impairment, Osteoarthritis (OA), Seizure Disorder Additional Past Medical History / Comment(s): cerebral aneurysm, bipolar disorder maintained on multiple psychotropic medications History of Any Multi-Drug Resistant Organisms: C-DIFF Date of last positivie culture/infection: 05/20/2018 MDRO Source:: stool Past Surgical History: Cholecystectomy, Tonsillectomy Additional Past Surgical History / Comment(s): , brain surgery x2 for aneurysm, catherterization to brain Past Anesthesia/Blood Transfusion Reactions: Unable to Obtain Past Psychological History: Anxiety, Bipolar, Schizophrenia Smoking Status: Current every day smoker Past Alcohol Use History: Daily Additional Past Alcohol Use History / Comment(s): ex- states that Sary has not drank in three months. Past Drug Use History: None Reported - Past Family History Father Family Medical History: COPD, Coronary Artery Disease (CAD), Diabetes Mellitus Mother Family Medical History: Cancer Medications and Allergies Home Medications Medication Instructions Recorded Confirmed Type Aspirin EC [Ecotrin] 325 mg PO DAILY 07/26/13 11/03/16 History Citalopram Hydrobromide 40 mg PO HS 07/26/13 11/03/16 History [Citalopram HBr] Gabapentin [Neurontin] 600 mg PO TID 07/26/13 11/03/16 History Methylphenidate HCl [Ritalin] 20 mg PO BID 07/26/13 11/03/16 History risperiDONE 4 mg PO HS 07/26/13 11/03/16 History traZODone HCL [traZODone] 150 mg PO HS 07/26/13 11/03/16 History Atorvastatin [Lipitor] 40 mg PO HS 07/04/16 11/03/16 History Cholecalciferol [Vitamin D3] 1,000 unit PO DAILY 07/04/16 11/03/16 History Lisinopril [Zestril] 10 mg PO DAILY 07/04/16 11/03/16 History Multivitamins, Thera [Multivitamin 1 tab PO DAILY 07/04/16 11/03/16 History (formulary)] Albuterol Inhaler [Ventolin Hfa 1 - 2 puff INHALATION RT-Q6H PRN 11/03/16 11/03/16 History Inhaler] Baclofen [Lioresal] 10 mg PO TID PRN 11/03/16 11/03/16 History Fluticasone/Salmeterol [Advair 1 inhalation PO RT-BID 11/03/16 11/03/16 History 500-50 Diskus] HYDROcodone/APAP 10-325MG [[place] 1 tab PO Q6H PRN 11/03/16 11/03/16 History 10-325] Meloxicam [Mobic] 15 mg PO DAILY 11/03/16 11/03/16 History Thiamine [Vitamin B-1] 100 mg PO DAILY 11/03/16 11/03/16 History Allergies Allergy/AdvReac Type Severity Reaction Status Date / Time iodine Allergy Unknown Verified 06/04/18 09:13 Penicillins Allergy Unknown Verified 06/04/18 09:13 Physical Exam Vitals: Vital Signs Temp Pulse Resp BP Pulse Ox 06/04/18 11:35 125 H 06/04/18 11:21 124 H 06/04/18 10:30 126 H 30 H 96/66 89 L 06/04/18 10:15 125 H 30 H 96/66 89 L 06/04/18 10:00 126 H 30 H 96/66 87 L 06/04/18 09:45 125 H 31 H 99/70 89 L 06/04/18 09:30 125 H 30 H 91 L 06/04/18 09:15 125 H 30 H 92 L 06/04/18 09:00 125 H 30 H 85/63 92 L 06/04/18 08:45 97.9 F 122 H 30 H 92 L 06/04/18 08:30 120 H 30 H 85/63 94 L 06/04/18 08:15 115 H 30 H 85/63 93 L 06/04/18 08:00 116 H 30 H 85/63 87 L 06/04/18 07:53 115 H 06/04/18 07:45 116 H 85/63 88 L 06/04/18 07:42 117 H 06/04/18 07:30 115 H 30 H 85/59 95 06/04/18 07:15 113 H 30 H 81/58 95 06/04/18 07:00 111 H 30 H 61/38 93 L 06/04/18 06:45 109 H 30 H 178/41 93 L 06/04/18 06:30 109 H 30 H 200/56 93 L 06/04/18 06:15 108 H 30 H 166/56 92 L 06/04/18 06:00 94.5 F L 107 H 30 H 92/53 94 L 06/04/18 05:45 112 H 89/57 73 L 06/04/18 05:30 109 H 31 H 86/56 76 L 06/04/18 05:15 108 H 30 H 95/61 77 L 06/04/18 05:00 108 H 30 H 90/59 77 L 06/04/18 04:45 107 H 30 H 93/59 79 L 06/04/18 04:30 109 H 30 H 92/62 86 L 06/04/18 04:15 106 H 30 H 83/55 83 L 06/04/18 04:00 93.9 F L 106 H 30 H 83/60 84 L 06/04/18 03:45 106 H 26 H 87/57 86 L 06/04/18 03:30 106 H 26 H 89/62 87 L 06/04/18 03:15 106 H 26 H 101/57 87 L 06/04/18 03:00 106 H 26 H 94/56 87 L 06/04/18 02:45 107 H 26 H 98/62 87 L 06/04/18 02:30 107 H 26 H 93/60 85 L 06/04/18 02:15 108 H 26 H 97/64 88 L 06/04/18 02:00 108 H 26 H 97/65 90 L 06/04/18 01:45 108 H 26 H 109/66 86 L 06/04/18 01:30 97.5 F L 105 H 18 84/58 86 L 06/04/18 00:46 97.6 F 107 H 18 89/59 89 L 06/04/18 00:40 108 H 06/04/18 00:26 108 H 06/04/18 00:00 97.8 F 105 H 18 83/62 87 L 06/03/18 23:30 110 H 18 91/66 97 06/03/18 23:15 112 H 18 101/73 89 L 06/03/18 23:02 117 H 18 114/78 90 L 06/03/18 22:45 117 H 18 108/72 90 L 06/03/18 22:30 113 H 18 72/44 85 L 06/03/18 22:15 100 18 76/50 85 L 06/03/18 22:12 113 H 28 H 06/03/18 22:06 113 H 29 H 06/03/18 22:00 111 H 29 H 71/51 97 06/03/18 21:45 110 H 28 H 77/49 94 L 06/03/18 21:34 97.3 F L 116 H 28 H 77/49 99 Intake and Output 06/03/18 06/04/18 06/04/18 22:59 06:59 14:59 Intake Total 34.478 2964.812 2100 Output Total 25 0 Balance 34.478 2939.812 2100 Intake: IV 2650 2100 Dextrose 5% in Water 1, 750 600 000 ml @ 150 mls/hr IV . Q7H40M LEE with Sodium Bicarb (1 Meq/ml) 150 ml Rx#:[id number] Magnesium Sulfate-D5w Pmx 200 1 gm In Dextrose/Water 1 100ml.bag @ 100 mls/hr IVPB ONCE ONE Rx#: [id number] Potassium Chloride 10 meq 200 In Water For Injection 1 100ml.bag @ 100 mls/hr IVPB Q1H [facility] Rx#: [id number] Potassium Chloride 20 meq 100 In Water For Injection 1 100ml.bag @ 50 mls/hr IVPB ONCE ONE Rx#: [id number] Sodium Chloride 0.9% 1, 500 400 000 ml @ 100 mls/hr IV . Q10H [facility] Rx#:[id number] Sodium Chloride 0.9% 1, 1000 1000 000 ml @ 999 mls/hr IV . Q1H1M ONE Rx#:[id number] Intake, IV Titration 34.478 314.812 Amount Cisatracurium 200 mg In 9.226 Sodium Chloride 0.9% 180 ml @ 1 MCG/KG/MIN 4.899 mls/hr IV .Q24H [facility] Rx#: [id number] Norepinephrine 4 mg In 34.478 305.586 Sodium Chloride 0.9% 250 ml @ 0.05 MCG/KG/MIN 15. 554 mls/hr IV .[id number] ONE Rx#:[id number] Output: Urine 25 0 Other: Voiding Method Indwelling Catheter Indwelling Catheter Weight 81.647 kg 84.9 kg ABP, PAP, CO, CI - Last 8 Hours Arterial Blood Pressure 74/51 Arterial Blood Pressure 77/53 Arterial Blood Pressure 78/49 Arterial Blood Pressure 82/51 Arterial Blood Pressure 87/53 Arterial Blood Pressure 92/54 Arterial Blood Pressure 96/55 Arterial Blood Pressure 93/55 Arterial Blood Pressure 87/52 Arterial Blood Pressure 78/46 Lying in bed intubated on a ventilator. S1-S2 heard Decreased breath sounds. Abdomen distended, with abdominal wall edema Edema. Results - Lab Results Most recent lab results ABG pH 7.11 (7.35-7.45) L* 06/04/18 11:52 ABG pCO2 60 mmHg (35-45) H 06/04/18 11:52 ABG pO2 54 mmHg (83-108) L* 06/04/18 11:52 ABG HCO3 19 mmol/L (21-25) L 06/04/18 11:52 ABG O2 Saturation 83.8 % (94-97) L 06/04/18 11:52 Calcium 6.7 mg/dL (8.4-10.2) L 06/04/18 07:39 Phosphorus 7.3 mg/dL (2.5-4.5) H 06/04/18 02:48 Magnesium 1.8 mg/dL (1.6-2.3) 06/04/18 07:39 06/04/18 02:48 06/04/18 07:39 Assessment and Plan Assessment: #1 oliguric acute kidney injury secondary to hemodynamic ATN from sepsis. #2 anemia with leukopenia. #3 vent dependent respiratory failure, shock liver #4 shock on pressors #5 anion gap metabolic acidosis Plan: #1 continue vasopressors to maintain hemodynamics. #2 with oliguria anticipate renal function to worsen. #3 avoid nephrotoxic agents and hypotensive episodes. #4 if renal function worsening, electrolyte changes consider dialysis. #5 continue with bicarb drip. Discussed plan of care with the son at bedside.
[2018-06-04 14:33] VITALS: BP 81/60; PULSE 122
[2018-06-04] MEDS ORDERED: VANCOMYCIN 1,500 MG in SODIUM CHLORIDE 0.9% 250 ML IVPB SCH (16:00)
[2018-06-04] MEDS ORDERED: CEFEPIME 2 GM in SODIUM CHLORIDE 0.9% 100 ML IVPB SCH (23:00)
[2018-06-06 08:06] LABS: ABG PH <7.00 (7.35-7.45)
--- NOTE | 2018-06-06 14:46 | CDI ---
Documentation Clarification Form Date: 06/06/18 From: Dominique Puma Payton Mary Lou, Antique Furniture Repairer Hours-8:30 am & 5 pm M-F Admit Date: 06/04/2018 12:22:00 AM Patient Name: Sary Weller Visit Number: [id number] Discharge Date: 06/04/2018 10:13:00 PM ATTENTION: The Clinical Documentation Specialists (CDI) and [facility] Coding Staff appreciate your assistance in clarifying documentation. Please respond to the clarification below the line at the bottom and electronically sign. The CDI & [facility] Coding staff will review the response and follow-up if needed. Please note: Queries are made part of the Legal Health Record. If you have any questions, please contact the author of this message via ITS. Dr. Alicja Tolliver The patient presented with the following septic shock, influenza A, asp pneumonia, acute hypoxic respiratory failure, ATN and liver shock. She was placed on mechanical ventilation. In your professional opinion, can you please clarify the cause of ? Other, please specify Unable to determine not mine. pl give to dr Britney SAUER
--- NOTE | 2018-06-06 14:51 | CDI ---
Documentation Clarification Form Date: 06/06/18 From: Dominique Puma Payton Barreto, Ground Service Equipment Mechanic Hours-8:30 am & 5 pm MCherie Admit Date: 06/04/2018 12:22:00 AM Patient Name: Sary Weller Visit Number: [id number] Discharge Date: 06/04/2018 10:13:00 PM ATTENTION: The Clinical Documentation Specialists (CDI) and [facility] Coding Staff appreciate your assistance in clarifying documentation. Please respond to the clarification below the line at the bottom and electronically sign. The CDI & [facility] Coding staff will review the response and follow-up if needed. Please note: Queries are made part of the Legal Health Record. If you have any questions, please contact the author of this message via ITS. Dr. Alicja Tolliver The patient presented with septic shock. She had influenza A. Blood culture grew haemophilus influenza In your professional opinion, please clarify if the cause of the sepsis? Sepsis due to influenza A Sepsis due to Haemophilus influenza Sepsis cause unknown Other, please specify Unable to determine dr muhammad'salud SAUER
--- NOTE | 2018-06-06 21:41 | P.DS ---
Providers Date of admission: 06/04/18 00:22 Attending physician: Alicja Tolliver Consults: 06/04/18 00:22 Consult Physician Urgent Consulting Provider: Marybeth Brand Consult Reason/Comments: Respiratory failure, septic shock Do you want consulting provider notified?: Already Contacted Consult Physician Urgent Consulting Provider: Marybeth Brand Consult Reason/Comments: resp failure, septic shock Do you want consulting provider notified?: Already Contacted 06/04/18 08:42 Consult Physician Urgent Consulting Provider: Jasson Klein Consult Reason/Comments: Septic shock, anuric Do you want consulting provider notified?: Yes Primary care physician: [facility] Course: Dx: acute hypoxic respiratory failure, needing intubation septic shock Pneumonia, concern for aspiration pneumonia possible ARDS acute Influenza infection recent C. diff, with possible ongoing infection Hypertension Hyperlipidemia History of COPD History of CVA/TIA and cerebral aneurysm History of liver disease History of bipolar disorder History of C. diff hospital course: this is a pleasant 58 years old femalewith past medical history of hypertension, hyperlipidemia, COPD, CVA/TIA, cerebral aneurysm, liver disease , alcohol abuse and bipolar disorder, C. diff, history of GI bleed, Fall, she was transferred from [facility] for pneumonia and sepsis, she was on BiPAP on arrival. She was hypotensive with blood pressure 77/49.in the emergency room patient got intubated. Patient went into septic shock. Her lactic acid was elevated. She received a total of 4 L of normal saline, bicarb motion and days later on on bicarbonate drip. Patient has been transferred to the ICU for further management. pt has been followed closely and managed by critical care team and universal grinder operator . as per staff family are aware of the patient's conditions and they made her DO NOT RESUSCITATE. pt has several lines placed by ICU team , norepinephrine was started , however pt continued to do poorly and eventually Patient Condition at Discharge: Serious Plan - Discharge Summary Discharge Rx Participant: No New Discharge Prescriptions: No Action Gabapentin [Neurontin] 600 mg PO TID Citalopram Hydrobromide [Citalopram HBr] 40 mg PO HS risperiDONE 4 mg PO HS Aspirin EC [Ecotrin] 325 mg PO DAILY Methylphenidate HCl [Ritalin] 20 mg PO BID traZODone HCL [traZODone] 150 mg PO HS Cholecalciferol [Vitamin D3] 1,000 unit PO DAILY Multivitamins, Thera [Multivitamin (formulary)] 1 tab PO DAILY Lisinopril [Zestril] 10 mg PO DAILY Atorvastatin [Lipitor] 40 mg PO HS Meloxicam [Mobic] 15 mg PO DAILY HYDROcodone/APAP 10-325MG [Aspen 10-325] 1 tab PO Q6H PRN PRN Reason: Pain Albuterol Inhaler [Ventolin Hfa Inhaler] 1 - 2 puff INHALATION RT-Q6H PRN PRN Reason: Shortness Of Breath Fluticasone/Salmeterol [Advair 500-50 Diskus] 1 inhalation PO RT-BID Baclofen [Lioresal] 10 mg PO TID PRN PRN Reason: Pain Thiamine [Vitamin B-1] 100 mg PO DAILY Discharge Medication List Aspirin EC [Ecotrin] 325 mg PO DAILY 07/26/13 [History] Citalopram Hydrobromide [Citalopram HBr] 40 mg PO HS 07/26/13 [History] Gabapentin [Neurontin] 600 mg PO TID 07/26/13 [History] Methylphenidate HCl [Ritalin] 20 mg PO BID 07/26/13 [History] risperiDONE 4 mg PO HS 07/26/13 [History] traZODone HCL [traZODone] 150 mg PO HS 07/26/13 [History] Atorvastatin [Lipitor] 40 mg PO HS 07/04/16 [History] Cholecalciferol [Vitamin D3] 1,000 unit PO DAILY 07/04/16 [History] Lisinopril [Zestril] 10 mg PO DAILY 07/04/16 [History] Multivitamins, Thera [Multivitamin (formulary)] 1 tab PO DAILY 07/04/16 [History] Albuterol Inhaler [Ventolin Hfa Inhaler] 1 - 2 puff INHALATION RT-Q6H PRN 11/03/16 [History] Baclofen [Lioresal] 10 mg PO TID PRN 11/03/16 [History] Fluticasone/Salmeterol [Advair 500-50 Diskus] 1 inhalation PO RT-BID 11/03/16 [History] HYDROcodone/APAP 10-325MG [Aspen 10-325] 1 tab PO Q6H PRN 11/03/16 [History] Meloxicam [Mobic] 15 mg PO DAILY 11/03/16 [History] Thiamine [Vitamin B-1] 100 mg PO DAILY 11/03/16 [History] Follow up Appointment(s)/Referral(s): Radnall Peña MD [Primary Care Provider] - 1-2 days Discharge Disposition: - Preliminary Cause of Preliminary Cause of : septic shock
--- NOTE | 2018-06-07 13:45 | CDI ---
Documentation Clarification Form Date: 06/07/2018 From: Dominique Puma Payton Barreto, Bosom Presser Hours-8:30 am & 5 pm M-F Admit Date: 06/04/2018 12:22:00 AM Patient Name: Sary Weller Visit Number: [id number] Discharge Date: 06/04/2018 10:13:00 PM ATTENTION: The Clinical Documentation Specialists (CDI) and [facility] Coding Staff appreciate your assistance in clarifying documentation. Please respond to the clarification below the line at the bottom and electronically sign. The CDI & [facility] Coding staff will review the response and follow-up if needed. Please note: Queries are made part of the Legal Health Record. If you have any questions, please contact the author of this message via ITS. Dr. Dacosta Sheet The patient presented with septic shock. She had influenza A. Blood culture grew haemophilus influenza In your professional opinion, please clarify if the cause of the sepsis? Sepsis due to influenza A Sepsis due to Haemophilus influenza Sepsis cause unknown Other, please specify Unable to determine septic shock secondary to many organism including possible influenza , Hemophilus influenze vs other [place] MTDD
== END 2018-06-04 22:13 | disposition expired | DRG 871 ==
LOC: EC 21:32 → 2SICU 06-04 00:22
PROVIDERS: ADMIT Hospitalist; ATTEND Hospitalist
PROC: 0BH17EZ Insertion of Endotracheal Airway into Trachea, Via Natural or Artificial Opening (ICD-10-PCS; principal; 2018-06-03)
PROC: 5A1935Z Respiratory Ventilation, Less than 24 Consecutive Hours (ICD-10-PCS; 2018-06-03)
PROC: 02H633Z Insertion of Infusion Device into Right Atrium, Percutaneous Approach (ICD-10-PCS; 2018-06-03)
PROC: 0D9670Z Drainage of Stomach with Drainage Device, Via Natural or Artificial Opening (ICD-10-PCS; 2018-06-04)
DX: A41.89 Other specified sepsis (principal); R65.21 Severe sepsis with septic shock; J96.01 Acute respiratory failure with hypoxia; J10.00 Influenza due to other identified influenza virus with unspecified type of pneumonia; N17.0 Acute kidney failure with tubular necrosis; K72.00 Acute and subacute hepatic failure without coma; J69.0 Pneumonitis due to inhalation of food and vomit; E87.2 Acidosis; A41.3 Sepsis due to Hemophilus influenzae; A41.2 Sepsis due to unspecified staphylococcus; A40.9 Streptococcal sepsis, unspecified; D70.9 Neutropenia, unspecified; F20.9 Schizophrenia, unspecified; Z66 Do not resuscitate; J44.9 Chronic obstructive pulmonary disease, unspecified; D64.9 Anemia, unspecified; G40.909 Epilepsy, unspecified, not intractable, without status epilepticus; I10 Essential (primary) hypertension; E78.5 Hyperlipidemia, unspecified; F31.9 Bipolar disorder, unspecified; F41.9 Anxiety disorder, unspecified; M19.90 Unspecified osteoarthritis, unspecified site; K76.9 Liver disease, unspecified; F10.10 Alcohol abuse, uncomplicated; F17.210 Nicotine dependence, cigarettes, uncomplicated; Z71.6 Tobacco abuse counseling; Z79.82 Long term (current) use of aspirin; Z79.1 Long term (current) use of non-steroidal anti-inflammatories (NSAID); Z79.899 Other long term (current) drug therapy; Z86.73 Personal history of transient ischemic attack (TIA), and cerebral infarction without residual deficits; Z90.49 Acquired absence of other specified parts of digestive tract; Z86.19 Personal history of other infectious and parasitic diseases; Z86.79 Personal history of other diseases of the circulatory system; Z87.19 Personal history of other diseases of the digestive system; Z99.89 Dependence on other enabling machines and devices; Z88.0 Allergy status to penicillin; Z88.8 Allergy status to other drugs, medicaments and biological substances; Z91.041 Radiographic dye allergy status; Z82.5 Family history of asthma and other chronic lower respiratory diseases; Z82.49 Family history of ischemic heart disease and other diseases of the circulatory system; Z83.3 Family history of diabetes mellitus
CPT/HCPCS: 31500; 36415; 36556; 36600; 71045; 80048; 80053; 81001; 82805; 83605; 83735; 84100; 84484; 85025; 85610; 85730; 87040; 87070; 87077; 87086; 87186; 87205; 87502; 93005; 94002; 94003; 94640; 96361; 96365; 96366; 96368; 96375; 99291; 99292